=== PATIENT | female | born 1955 | race Caucasian/White ===

== ENCOUNTER → 2019-08-02 09:18 | Outpatient (CLI) | payer BC, SELFPAY ==
--- NOTE | 2019-08-02 09:22 | DI.US.S_ITS ---
PROCEDURE: US PELVIC COMPLETE INDICATIONS: POST MENOPAUSAL BLEEDING TECHNIQUE: Real-time scanning was performed of the pelvic organs, with image documentation. Additional endovaginal scanning was necessary due to incomplete visualization of the adnexal and endometrial structures by transabdominal scanning. COMPARISON: None. FINDINGS: Transabdominal scanning: Limited scanning through the kidneys shows no hydronephrosis. No pathologic free abdominal or pelvic fluid. Endovaginal scanning: Uterus: Uterus is normal in size at 7.3 x 2.5 x 4.5 cm. The endometrium measures 4 mm in combined thickness. Ovaries: The right ovary measures 1.7 by 1 by 1.7 cm. The left ovary measures 2.6 x 1.4 x 1 cm. The ovaries have a normal sonographic appearance. Incidental note is made of a septated cystic lesion adjacent to the uterine fundus that does not appear to be associated with either ovary, which measures 2.2 x 1.6 x 2 x 1 cm. IMPRESSION: The endometrial stripe is not thickened in this patient with a presenting history of postmenopausal bleeding. Normal appearing ovaries. Adjacent to the uterine fundus, there is a 2.2 cm septated cystic lesion that does not appear to be associated with either ovary. Please consider additional workup for this lesion, either with a CT of the abdomen and pelvis with IV and oral contrast or a dedicated gynecological protocol MRI (assuming that there is no contraindication). Dictated by: Gustavo Hawk M.D. on 08/02/2019 at 10:50 Approved by: Gustavo Hawk M.D. on 08/02/2019 at 10:52
== END ==
PROVIDERS: PCP Family Medicine; Referring Provider Nurse Practitioner; Visit Provider Nurse Practitioner
DX: N95.0 Postmenopausal bleeding (principal); N85.9 Noninflammatory disorder of uterus, unspecified; R10.2 Pelvic and perineal pain; R32 Unspecified urinary incontinence
CPT/HCPCS: 76830; 76856

== ENCOUNTER → 2019-08-15 08:14 | Outpatient (CLI) | payer BC, SELFPAY ==
[2019-08-15 09:52] LABS: Add Manual Diff / Slide Review NO; Basophils Absolute Auto 0 /uL (0-100); Basophils Percent Auto 0.6 % (0-2); Eosinophils Absolute Auto 200 /uL (0-450); Eosinophils Percent Auto 2.6 % (2-4); Hematocrit 40.6 % (36-46); Hemoglobin 14.1 g/dL (12.0-16.0); Lymphocytes Absolute Auto 2300 /uL (1100-4500); Lymphocytes Percent Auto 35.8 % (25-40); Mean Corpuscular HGB Conc 34.8 % (30-36); Mean Corpuscular Hemoglobin 31.4 PG (26-34); Mean Corpuscular Volume 90.2 fL (80-100); Monocytes Absolute Auto 500 /uL (0-900); Monocytes Percent Auto 7.7 % (3-14); Neutrophils Absolute Auto 3500 /uL (1500-7000); Neutrophils Percent Auto 53.3 % (50-75); Platelet Count 235 X10^3/uL (150-400); Red Blood Cell Count 4.51 X10^6/uL (4.0-5.2); Red Cell Distribution Width 12.8 % (11.6-14.8); White Blood Cell Count 6.5 X10^3/uL (4.5-11.0)
[2019-08-15 10:30] LABS: HEMOLYSIS < 15 (0-50); Iron 197 ug/dL (37-170)
[2019-08-15 10:36] LABS: Alanine Aminotransferase 37 IU/L (<35); Albumin 4.1 g/dL (3.5-5.0); Albumin Globulin Ratio 1.7 (1.0-2.8); Alkaline Phosphatase 72 U/L (38-126); Aspartate Aminotransferase 28 IU/L (14-36); BUN Creatinine Ratio 31.8 (6-22); Bilirubin Total 0.6 mg/dL (0.2-1.3); Blood Urea Nitrogen 21 mg/dL (7-17); Calcium 9.7 mg/dL (8.4-10.2); Carbon Dioxide 24 mmol/L (22-32); Chloride 106 mmol/L (98-107); Estimated Glomerular Filt Rate > 60.0 mL/min (>60); Globulin 2.4 g/dL (1.7-4.1); Glucose 97 mg/dL (80-110); HEMOLYSIS < 15 (0-50); Potassium 4.4 mmol/L (3.4-5.1); Sodium 137 mmol/L (137-145); Total Protein 6.5 g/dL (6.3-8.2)
[2019-08-15 10:43] LABS: Percent Iron Saturation 84 % (15-50); Total Iron Binding Capacity 235 ug/dL (265-497); Transferrin 170 mg/dL (206-381)
[2019-08-15 10:48] LABS: Free T3, Triiodothyronine Free 4.72 pg/mL (2.77-5.27); Free T4, Direct Thyroxine 1.23 ng/dL (0.78-2.19)
[2019-08-15 11:02] LABS: Thyroid Stimulating Hormone 2.16 uIU/mL (0.47-4.68)
== END ==
PROVIDERS: PCP Family Medicine; Referring Provider Family Medicine; Visit Provider Family Medicine
DX: Z98.890 Other specified postprocedural states (principal); Z83.49 Family history of other endocrine, nutritional and metabolic diseases
CPT/HCPCS: 36415; 80053; 83540; 83550; 84439; 84443; 84481; 85025

== ENCOUNTER → 2019-09-07 11:17 | Outpatient (CLI) | payer BC, SELFPAY | PROVIDERS: PCP Family Medicine; Referring Provider Obstetrics & Gynecology; Visit Provider Obstetrics & Gynecology | DX: R19.00 Intra-abdominal and pelvic swelling, mass and lump, unspecified site (principal); Z53.20 Procedure and treatment not carried out because of patient's decision for unspecified reasons ==

== ENCOUNTER → 2019-09-21 10:18 | Outpatient (CLI) | payer BC, SELFPAY ==
[2019-09-21 12:54] LABS: Cancer Antigen 125 < 5.5 U/mL (0-35)
== END ==
PROVIDERS: PCP Family Medicine; Referring Provider Obstetrics & Gynecology; Visit Provider Obstetrics & Gynecology
DX: R19.00 Intra-abdominal and pelvic swelling, mass and lump, unspecified site (principal)
CPT/HCPCS: 36415; 86304

== ENCOUNTER 2019-11-18 09:45 | Outpatient (RCR) | payer BC, SELFPAY ==
--- NOTE | 2019-09-23 17:00 | PT.OIE ---
Current Diagnoses Stiffness of unspecified hip, not elsewhere classified (09/23/19) Muscle weakness (generalized) (09/23/19) Postmenopausal bleeding (09/23/19) Abnormal posture (09/23/19) Past Medical History (Last Updated 08/30/19 @ 17:18 by Jc Rodriguez DO) Abdominal distension (Acute) Cardiac arrhythmia (Chronic ~1994) Carpal tunnel syndrome (Chronic ~2017) Cervical motion tenderness (Acute) Chicken pox (Resolved ~1964) Chronic pain of right thumb (Acute) Chronic thumb pain, bilateral (Acute) Dermatitis (Acute) Family history of hemochromatosis (Acute) Frequent UTI (Inactive ~1989) Incontinence (Acute) Intermittent palpitations (Acute) Kidney stones (Inactive ~1985) Lumbar region somatic dysfunction (Acute) Measles (Resolved ~1964) Mumps (Resolved ~1964) Pelvic somatic dysfunction (Acute) Post-menopausal bleeding (Acute) Sacral region somatic dysfunction (Acute) Segmental and somatic dysfunction of rib cage (Acute) Thyroid nodule (Chronic ~2018) Upper extremity somatic dysfunction (Acute) Wears glasses (Chronic) Past Surgical History (Last Updated 08/17/19 @ 18:14 by Vivian Stephens) Anesthesia (Resolved) History of section (Resolved) History of partial thyroidectomy (Resolved ~03/18/18) Visit Care Team Role Provider Type Jc Rodriguez DO Primary Care Provider Physician Specialty: Family Practice Address: [address] [place] [address], [id number] Email: POORNIMA Perez Attending Provider Advanced Logistics Analyst Referring Provider Specialty: [facility] Practice Address: [address] [place] [address], [id number] Email: [email or web address] Physical Therapy Initial Evaluation PT-OP-A Visit Information Start: 09/22/19 23:16 Freq: Status: Active Protocol: Document 09/23/19 09:04 LRN (Rec: 09/23/19 09:11 LRN [id number]) Out-Patient Physical Therapy Visit Information Visit Information Visit Type Initial Evaluation Visit Start Time 09:04 Visit Stop Time 09:59 Total Visit Minutes 55 Visit Number 1 Evaluation Information Evaluation Date 09/23/19 Precautions Precautions LATEX ALLERGY Unknown spot bleeding, possibly of pelvic region. Lesion adjacent to uterus inferior to fundus. PT-OP-B Current Condition Start: 09/22/19 23:16 Freq: Status: Active Protocol: Document 09/23/19 09:04 LRN (Rec: 09/23/19 09:59 LRN [id number]) Current Condition History of Current Condition Onset Date 5 yrs ago Current Complaints Urinary leakage intermittently , spotted bleeding of unknown origin. History of Current Condition Prior health history: Internal checks with speculum by Dr. Bhat was done and she was told vagina tissues were thinning. Chooses not to use estrogen cream due to fear cancer risk. She reports pain with intercourse, but no connection with spotting. She has had spotted bleeding when lifting her granddaughter (17 month old) up/down when lifting. She has undergone tests (see below) for the bleeding, but cause for bleeding is still unknown. Her urinary leakage is with running, fast walking, lifting of her granddaughter, but not with coughing or sneeezing. She does indicate she modifies her posture (cross legs) that may be why she is not leaking with those activities. She states her problem has been worse and got better, but now worse again. Prior Treatments and Tests Pelvic exams. Ultrasound, ruled out ovarian cancer. Endometrial biopsy was neg, and CA 125 was negative. Dx via ultrasound 08/02/19: Septated cystic lesion adjacent to the uterine fundus that doesn't appear to be associated with either ovary. Pt reports it has gotten smaller. Future Testing and Treatments Planned In 2 months (Nov) a 2nd ultrasound is planned. Treatment Goals Patient/Caregiver Goals Pt goal is to learn good exercises to build strength into muscles, and to run without leaking, to be able to walk faster on downhill walks without leaking, and to be able to play with her granddaughter without leaking. Prior Functional Status Baseline Function- ADL's Independent Baseline Function- Mobility Independent Baseline Function- Gait 5 yrs ago didn't leak with fast walking downhill. Baseline Function- Recreation/Hobbies 5 yrs ago didn't leak with running, lifting or backpacking. Current Functional Impairments (Reported) Functional Limitations- ADL's Urinary leaking with fast walking downhill, and with walking with a heavy backpack or granddaughter in a back pack. Urinary leakage with picking up and playing with 17 month old granddaughter, mainly towards end of day. Functional Limitations- Recreation/ Back packing causes urinary Hobbies leakage. Personal Factors Other Personal Factors That May Effect Unknown spot bleeding of Therapy/Recovery pelvic region. Cares and plays with her 17 month old granddaugher. PT-OP-C Subjective Start: 09/22/19 23:16 Freq: Status: Active Protocol: Document 09/23/19 09:04 LRN (Rec: 09/23/19 09:11 LRN [id number]) OP-PT Subjective Patient Comments Patient Comments PT for urinary incontinence, denies fecal incontinence. Patient Questionnaires Pelvic Pain and Urgency/Frequency Patient Symptom Scale Pelvic Pain Score 4 PT-OP-I Pelvic Floor Start: 09/22/19 23:16 Freq: Status: Active Protocol: Document 09/23/19 09:04 LRN (Rec: 09/23/19 19:57 LRN [id number]) Pelvic Floor Assessment Urine Pelvic Floor Surgery No Leakage Size Small Leakage Cause Cough,Lifting,Sneeze Leaks Per Day 4-5/month Voiding Frequency 4-5 times/day Nocturia 1 Pads Used In 24 Hours Occasional Poise pad (2) Pelvic Clock Pelvic Clock 12-3 Tenderness Pelvic Clock 3-6 Tenderness Pelvic Clock 6-9 Tenderness Pelvic Clock 9-12 Tenderness Pelvic Clock Other Tenderness of lateral lam of vaginal opening. Prolapse Cystocele Grade 1 Urethrocele Grade 1 Perineal Descent Resting Absent Bearing Absent Contraction Ability Voluntary Contraction Moderate Manual Muscle Testing Left 2 Manual Muscle Testing Right 3 Manual Muscle Testing Anterior 3 Manual Muscle Testing Posterior 3 Muscle Endurance (Seconds) 5 Number of Quick Contractions In 10 5 Seconds Comments Pelvic Floor Comments Relaxation: Present but slow to respond. Endurance: After 5 secs strength was decreased but contraction present. Quick Contractions: After 5 & 8 reps strength of contraction was less but contractions present. Visual Assessment during PF contraction: Mild Clitoral Nod, Notable Anal Scio, use of Abdominal muscles and mildly the Gluteal muscles to assist with contraction. PT-OP-J Posture/Palpation/Skin Start: 09/22/19 23:16 Freq: Status: Active Protocol: Document 09/23/19 09:04 LRN (Rec: 09/23/19 19:57 LRN [id number]) Posture Evaluation Position Standing Evaluation View All positions Head/C-Spine Posture C-Spine Flattened T-Spine Posture Increased Kyphosis L-Spine Posture Increased Lordosis Pelvis Posture Anteriorly Tilted,(R) Iliac Crest Superior Palpation Assessment Location Leg lengths Palpation Location Medial Malleolus Palpation Details Long in supine and long in longsit. PT-OP-K Range of Motion Start: 09/22/19 23:16 Freq: Status: Active Protocol: Document 09/23/19 09:04 LRN (Rec: 09/23/19 19:57 LRN [id number]) Lumbar Spine Range of Motion Lumbar Spine Active Degrees Testing Position Standing Flexion 70 Extension 18 Comments Trunk flex is with 48 deg's hip flexion, Trunk ext is with 12 deg's hip ext. PT-OP-M Strength Start: 09/22/19 23:16 Freq: Status: Active Protocol: Document 09/23/19 09:04 LRN (Rec: 09/23/19 19:57 LRN [id number]) Hip Strength Hip Manual Muscle Testing Right Reason Not Measured WFL Comments Strength is 5/5 Left Extension (S1) 3+ Fair+ External Rotation 4+ Good+ Comments Strength is 5/5 except as indicated above. PT-OP-Q Treatments Start: 09/22/19 23:16 Freq: Status: Active Protocol: Document 09/23/19 09:04 LRN (Rec: 09/23/19 09:11 LRN [id number]) Self-Care/Home Management Treatment Education Patient Education Home Exercise Program Other Education Discussed results of evaluation, discussed assessment at vaginal entry and possible reasons for pain, discussed specifics of plan of care, and goals. Discussed and educated pt in specifics for completion of bladder diary for next 7 days. Activities Self-Care/Home Management Activities Issued & reviewed HEP: Kegel exercises of Quick Flicks, Long Holds, and Aggravators. PT-OP-T Assessment and Plan Start: 09/22/19 23:16 Freq: Status: Active Protocol: Document 09/23/19 09:04 LRN (Rec: 09/23/19 09:11 LRN [id number]) Physical Therapy Assessment Rehab Potential Rehabilitation Potential Good Evaluation Complexity Number of Personal Factors/Comorbidities 1-2 Impairments Impairments Activity Tolerance,Functional Mobility,Pain,Posture,ROM, Strength Other Impairments Red and sore tissues at the opening of the vagina on the lateral lam. Goals Five Impairment Tenderness of lateral lam of the vaginal opening. Short Term Goal (STG) Pt will be educated in proper PF care with referral to physician for recommendation of care. STG Duration 09/30/19 Four Impairment Sacroiliac instability with anteriorly rotated RLE/ posteriorly rotated LLE. Short Term Goal (STG) Correct Sacroiliac dysfunction (sacrum flexed, anteriorl rotated R innoiminate or R long leg) STG Duration 10/06/13 Penitentiary Goal (LTG) Pt will be able to self correction for her particular sacroiliac dysfunction to improve pelvic stability and improve her level of continence. LTG Duration 12/22/19 Three Impairment Substitution of abdominal and gluteal ms to perform a PF contraction Short Term Goal (STG) Decrease use of associated abdominal/gluteal muscles when antione the PF. STG Duration 10/14/19 Penitentiary Goal (LTG) Pt will be able to perform a PF contraction in the absence of abdominal/gluteal muscles. LTG Duration 11/20/19 Two Impairment Urinary incontinence with lifting granddaughter and fast walking declines. Short Term Goal (STG) Improve PF strength per Long Hold to 8 sec's prior to fatigue and Quick Flicks to 8 reps prior to fatigue (Initial : Long Hold 5 secs, Quick Flick 5 prior to fatigue). STG Duration 10/21/19 Candy Butcher Goal (LTG) Pt will be able to maintain continence while lifting her granddaughter and fast walking declines. LTG Duration 12/22/19 One Impairment Pt lacks an independent self care HEP. Candy Butcher Goal (LTG) Pt will be independent in a self care HEP for PF strengthening. LTG Duration 12/22/19 Assessment Summary Assessment Pt presents with symptoms of stress urinary incontinence. She also presents with soft tissue irritation at the vaginal entry with red angry tissues on the lateral sides. There is still mild redness at the pelvic floor (PF) and inner thighs from a diagnosed fungal infection. Her PF external tissue appear health. She indicates her leakage is 4-5 times/monthwith wetting of underwear and use of Poise pads (2). Her leakage occurs with vigorous activity (taking care of her 17 month old granddaughter) and descending inclines during fast walking. She indicates normal voiding 4-5 times/day but also indicates drinking only 3 glasses of fluid and 2 caffeinated glasses per day. She is voiding a normal amount at night. The pt will benefit from skilled physical therapy for education in proper PF care and home exercises, therapeutic ex to improve PF, hip and core strength, to improve hip mobility and improve pelvic positioning, and eliminate her urinary incontinence. Physical Therapy Plan Frequency and Duration Frequency of Treatment 1x/Week Plan of Care Start Date 09/23/19 Plan of Care End Date 12/22/19 Therapeutic Interventions Therapeutic Interventions Home Exercise Program,Manual Therapy,Patient/Caregiver Education,Self-Care/Home Management,Soft Tissue Mobilization,Therapeutic Exercises Modalities Biofeedback Next Visit Focus/Plan Next Note Type Treatment Note Next Visit Plan Contact Dr. Villalta regarding pt's vaginal health and fungal infection. Review and discuss bladder diary and kegel ex. Discuss Julva cream for pt to discuss with Dr. Villalta. Assess hip mobility and start ROM exercises as appropriate. Train pt in proper deep breathing and educate pt in incorporating proper deep breathing with PF contraction with functional/ daily activities (transfers, lifting). Discuss incline walking. Try stretch to PF ( Happy Baby Pose), Hip strengthening: L hip ER, and Ext. Core strengthening, STM for TrP, tender points, short muscles, and progress Roll in/ out PF exercises and core strengthening.
--- NOTE | 2019-09-30 17:34 | PT.OTN ---
Current Diagnoses Stiffness of unspecified hip, not elsewhere classified (09/30/19) Muscle weakness (generalized) (09/30/19) Postmenopausal bleeding (09/30/19) Abnormal posture (09/30/19) Physical Therapy Treatment Note PT-OP-A Visit Information Start: 09/22/19 23:16 Freq: Status: Active Protocol: Document 09/30/19 09:06 LRN (Rec: 09/30/19 09:52 LRN [id number]) Out-Patient Physical Therapy Visit Information Visit Information Visit Type Treatment Note Visit Start Time 09:06 Visit Stop Time 09:51 Total Visit Minutes 45 Visit Number 2 Evaluation Information Evaluation Date 09/23/19 Precautions Precautions LATEX ALLERGY Unknown spot bleeding, possibly of pelvic region. Lesion adjacent to uterus inferior to fundus. PT-OP-B Current Condition Start: 09/22/19 23:16 Freq: Status: Active Protocol: Document 09/23/19 09:04 LRN (Rec: 09/23/19 09:59 LRN [id number]) Current Condition History of Current Condition Onset Date 5 yrs ago Current Complaints Urinary leakage intermittently , spotted bleeding of unknown origin. History of Current Condition Prior health history: Internal checks with speculum by Dr. Bhat was done and she was told vagina tissues were thinning. Chooses not to use estrogen cream due to fear cancer risk. She reports pain with intercourse, but no connection with spotting. She has had spotted bleeding when lifting her granddaughter (17 month old) up/down when lifting. She has undergone tests (see below) for the bleeding, but cause for bleeding is still unknown. Her urinary leakage is with running, fast walking, lifting of her granddaughter, but not with coughing or sneeezing. She does indicate she modifies her posture (cross legs) that may be why she is not leaking with those activities. She states her problem has been worse and got better, but now worse again. Prior Treatments and Tests Pelvic exams. Ultrasound, ruled out ovarian cancer. Endometrial biopsy was neg, and CA 125 was negative. Dx via ultrasound 08/02/19: Septated cystic lesion adjacent to the uterine fundus that doesn't appear to be associated with either ovary. Pt reports it has gotten smaller. Future Testing and Treatments Planned In 2 months (Nov) a 2nd ultrasound is planned. Treatment Goals Patient/Caregiver Goals Pt goal is to learn good exercises to build strength into muscles, and to run without leaking, to be able to walk faster on downhill walks without leaking, and to be able to play with her granddaughter without leaking. Prior Functional Status Baseline Function- ADL's Independent Baseline Function- Mobility Independent Baseline Function- Gait 5 yrs ago didn't leak with fast walking downhill. Baseline Function- Recreation/Hobbies 5 yrs ago didn't leak with running, lifting or backpacking. Current Functional Impairments (Reported) Functional Limitations- ADL's Urinary leaking with fast walking downhill, and with walking with a heavy backpack or granddaughter in a back pack. Urinary leakage with picking up and playing with 17 month old granddaughter, mainly towards end of day. Functional Limitations- Recreation/ Back packing causes urinary Hobbies leakage. Personal Factors Other Personal Factors That May Effect Unknown spot bleeding of Therapy/Recovery pelvic region. Cares and plays with her 17 month old granddaugher. PT-OP-C Subjective Start: 09/22/19 23:16 Freq: Status: Active Protocol: Document 09/30/19 09:06 LRN (Rec: 09/30/19 09:52 LRN [id number]) OP-PT Subjective Patient Comments Patient Comments States she has been doing the leakage and the things she usually does that causes leakage (walkking down to beach, walking back to house once she felt an urge) doesn't . Leaked a little with lifting kayak. Hasn't seen her granddaughter, but it would be similar to lifting granddaughter. States no blood spotting, but she hasn't been around her granddaughter . States a day ago she woke from sleep feeling stinging in vaginal canal. The fungal infection in the thigh is almost gone with use of cream. PT-OP-I Pelvic Floor Start: 09/22/19 23:16 Freq: Status: Active Protocol: Document 09/23/19 09:04 LRN (Rec: 09/23/19 19:57 LRN [id number]) Pelvic Floor Assessment Urine Pelvic Floor Surgery No Leakage Size Small Leakage Cause Cough,Lifting,Sneeze Leaks Per Day 4-5/month Voiding Frequency 4-5 times/day Nocturia 1 Pads Used In 24 Hours Occasional Poise pad (2) Pelvic Clock Pelvic Clock 12-3 Tenderness Pelvic Clock 3-6 Tenderness Pelvic Clock 6-9 Tenderness Pelvic Clock 9-12 Tenderness Pelvic Clock Other Tenderness of lateral lam of vaginal opening. Prolapse Cystocele Grade 1 Urethrocele Grade 1 Perineal Descent Resting Absent Bearing Absent Contraction Ability Voluntary Contraction Moderate Manual Muscle Testing Left 2 Manual Muscle Testing Right 3 Manual Muscle Testing Anterior 3 Manual Muscle Testing Posterior 3 Muscle Endurance (Seconds) 5 Number of Quick Contractions In 10 5 Seconds Comments Pelvic Floor Comments Relaxation: Present but slow to respond. Endurance: After 5 secs strength was decreased but contraction present. Quick Contractions: After 5 & 8 reps strength of contraction was less but contractions present. Visual Assessment during PF contraction: Mild Clitoral Nod, Notable Anal Lowry, use of Abdominal muscles and mildly the Gluteal muscles to assist with contraction. PT-OP-J Posture/Palpation/Skin Start: 09/22/19 23:16 Freq: Status: Active Protocol: Document 09/23/19 09:04 LRN (Rec: 09/23/19 19:57 LRN [id number]) Posture Evaluation Position Standing Evaluation View All positions Head/C-Spine Posture C-Spine Flattened T-Spine Posture Increased Kyphosis L-Spine Posture Increased Lordosis Pelvis Posture Anteriorly Tilted,(R) Iliac Crest Superior Palpation Assessment Location Leg lengths Palpation Location Medial Malleolus Palpation Details Long in supine and long in longsit. PT-OP-K Range of Motion Start: 09/22/19 23:16 Freq: Status: Active Protocol: Document 09/23/19 09:04 LRN (Rec: 09/23/19 19:57 LRN [id number]) Lumbar Spine Range of Motion Lumbar Spine Active Degrees Testing Position Standing Flexion 70 Extension 18 Comments Trunk flex is with 48 deg's hip flexion, Trunk ext is with 12 deg's hip ext. PT-OP-M Strength Start: 09/22/19 23:16 Freq: Status: Active Protocol: Document 09/23/19 09:04 LRN (Rec: 09/23/19 19:57 LRN [id number]) Hip Strength Hip Manual Muscle Testing Right Reason Not Measured WFL Comments Strength is 5/5 Left Extension (S1) 3+ Fair+ External Rotation 4+ Good+ Comments Strength is 5/5 except as indicated above. PT-OP-Q Treatments Start: 09/22/19 23:16 Freq: Status: Active Protocol: Document 09/30/19 09:06 LRN (Rec: 09/30/19 09:52 LRN [id number]) Therapeutic Exercises Supine Exercises Piriformis stretch Supine Exercise Name Piriformis stretch (pulling knee to opposite shoulder) Side bilateral Reps/Minutes 5' Comments Physical & v. cuing to find optimum stretch Lateral hip stretch Supine Exercise Name Lateral hip stretch Side bilateral Reps/Minutes 4' Comments Physical & v. cuing to find optimum stretch Fig 4 stretch Supine Exercise Name Fig 4 stretch Side bilateral Reps/Minutes 4' Comments Physical & v. cuing to find optimum stretch Self-Care/Home Management Treatment Education Patient Education Body Mechanics,Home Exercise Program Other Education Discussed pt's varying symptoms and educated pt in proper breathing technique with proper bending/lifting body mechanics. Reviewed bladder diary at length (20') with discussion of average voiding frequency and educated /discussed proper fluid intake for hydrationi and to help with voiding frequency. Issued bladder irritant handout with discussed at length (11') of various foods and drinks that could irritate bladder lining Activities Self-Care/Home Management Activities Issued & reviewed HEP: Hip ER /IR stretches. Recommended to pt that she contact Dr Villalta, OBGYN, for recommendations on vaginal soft tissue care. Discussed because she has not noted spot bleeding this past week ( although she has not had to take care of her granddaughter ), but her tissues still feel irritated, she might consider a discussion of tissue health with her OBGYN. PT-OP-T Assessment and Plan Start: 09/22/19 23:16 Freq: Status: Active Protocol: Document 09/30/19 09:06 LRN (Rec: 09/30/19 09:52 LRN [id number]) Physical Therapy Assessment Goals Five Impairment Tenderness of lateral lam of the vaginal opening. Short Term Goal (STG) Pt will be educated in proper PF care with referral to physician for recommendation of care. STG Duration 09/30/19 Four Impairment Sacroiliac instability with anteriorly rotated RLE/ posteriorly rotated LLE. Short Term Goal (STG) Correct Sacroiliac dysfunction (sacrum flexed, anteriorl rotated R innoiminate or R long leg) STG Duration 10/06/13 Nursing Home Goal (LTG) Pt will be able to self correction for her particular sacroiliac dysfunction to improve pelvic stability and improve her level of continence. LTG Duration 12/22/19 Three Impairment Substitution of abdominal and gluteal ms to perform a PF contraction Short Term Goal (STG) Decrease use of associated abdominal/gluteal muscles when antione the PF. STG Duration 10/14/19 Nursing Home Goal (LTG) Pt will be able to perform a PF contraction in the absence of abdominal/gluteal muscles. LTG Duration 11/20/19 Two Impairment Urinary incontinence with lifting granddaughter and fast walking declines. Short Term Goal (STG) Improve PF strength per Long Hold to 8 sec's prior to fatigue and Quick Flicks to 8 reps prior to fatigue (Initial : Long Hold 5 secs, Quick Flick 5 prior to fatigue). STG Duration 10/21/19 Nursing Home Goal (LTG) Pt will be able to maintain continence while lifting her granddaughter and fast walking declines. LTG Duration 12/22/19 One Impairment Pt lacks an independent self care HEP. Nursing Home Goal (LTG) Pt will be independent in a self care HEP for PF strengthening. LTG Duration 12/22/19 Assessment Summary Assessment Pt has noted improvement in her level of continence with less leakage doing Kegel exercises. Bladder Diary review results in finding pt to be very restricted in her fluid intake, taking in 1/2 or less than recommended values. Pt should discuss with Dr. Villalta her vaginal health with a possible cream since her fungal infection appears to be clearing. Physical Therapy Plan Frequency and Duration Frequency of Treatment 1x/Week Plan of Care Start Date 09/23/19 Plan of Care End Date 12/22/19 Next Visit Focus/Plan Next Note Type Treatment Note Next Visit Plan Contact Dr. Villalta regarding pt's vaginal health and fungal infection. Discuss Julva cream for pt to discuss with Dr. Villalta. Review proper deep breathing and incorporating proper deep breathing with PF contraction with functional/daily activities (transfers, lifting ). Discuss incline walking. Try stretch to PF (Happy Baby Pose), Hip strengthening: L hip ER, and Ext. Core strengthening, STM for TrP, tender points, short muscles, and progress Roll in/out PF exercises and core strengthening.
--- NOTE | 2019-10-07 14:52 | PT.OTN ---
Current Diagnoses Stiffness of unspecified hip, not elsewhere classified (10/07/19) Muscle weakness (generalized) (10/07/19) Postmenopausal bleeding (10/07/19) Abnormal posture (10/07/19) Physical Therapy Treatment Note PT-OP-A Visit Information Start: 09/22/19 23:16 Freq: Status: Active Protocol: Document 10/07/19 09:03 LRN (Rec: 10/07/19 09:52 LRN [id number]) Out-Patient Physical Therapy Visit Information Visit Information Visit Type Treatment Note Visit Start Time 09:03 Visit Stop Time 09:45 Total Visit Minutes 42 Visit Number 3 Evaluation Information Evaluation Date 09/23/19 Precautions Precautions LATEX ALLERGY Unknown spot bleeding, possibly of pelvic region. Lesion adjacent to uterus inferior to fundus. PT-OP-B Current Condition Start: 09/22/19 23:16 Freq: Status: Active Protocol: Document 09/23/19 09:04 LRN (Rec: 09/23/19 09:59 LRN [id number]) Current Condition History of Current Condition Onset Date 5 yrs ago Current Complaints Urinary leakage intermittently , spotted bleeding of unknown origin. History of Current Condition Prior health history: Internal checks with speculum by Dr. Bhat was done and she was told vagina tissues were thinning. Chooses not to use estrogen cream due to fear cancer risk. She reports pain with intercourse, but no connection with spotting. She has had spotted bleeding when lifting her granddaughter (17 month old) up/down when lifting. She has undergone tests (see below) for the bleeding, but cause for bleeding is still unknown. Her urinary leakage is with running, fast walking, lifting of her granddaughter, but not with coughing or sneeezing. She does indicate she modifies her posture (cross legs) that may be why she is not leaking with those activities. She states her problem has been worse and got better, but now worse again. Prior Treatments and Tests Pelvic exams. Ultrasound, ruled out ovarian cancer. Endometrial biopsy was neg, and CA 125 was negative. Dx via ultrasound 08/02/19: Septated cystic lesion adjacent to the uterine fundus that doesn't appear to be associated with either ovary. Pt reports it has gotten smaller. Future Testing and Treatments Planned In 2 months (Nov) a 2nd ultrasound is planned. Treatment Goals Patient/Caregiver Goals Pt goal is to learn good exercises to build strength into muscles, and to run without leaking, to be able to walk faster on downhill walks without leaking, and to be able to play with her granddaughter without leaking. Prior Functional Status Baseline Function- ADL's Independent Baseline Function- Mobility Independent Baseline Function- Gait 5 yrs ago didn't leak with fast walking downhill. Baseline Function- Recreation/Hobbies 5 yrs ago didn't leak with running, lifting or backpacking. Current Functional Impairments (Reported) Functional Limitations- ADL's Urinary leaking with fast walking downhill, and with walking with a heavy backpack or granddaughter in a back pack. Urinary leakage with picking up and playing with 17 month old granddaughter, mainly towards end of day. Functional Limitations- Recreation/ Back packing causes urinary Hobbies leakage. Personal Factors Other Personal Factors That May Effect Unknown spot bleeding of Therapy/Recovery pelvic region. Cares and plays with her 17 month old granddaugher. PT-OP-C Subjective Start: 09/22/19 23:16 Freq: Status: Active Protocol: Document 10/07/19 09:03 LRN (Rec: 10/07/19 09:52 LRN [id number]) OP-PT Subjective Patient Comments Patient Comments Pt states she did ex's only a couple times due to company visiting this week. Didn't do bladder diary. States she is hurting no inside the vagina and has not had sexual intercourse. No spotting, odor or discharge. States she has seen her granddaughter and did not have spotting, did have urinary leakage. PT-OP-I Pelvic Floor Start: 09/22/19 23:16 Freq: Status: Active Protocol: Document 09/23/19 09:04 LRN (Rec: 09/23/19 19:57 LRN [id number]) Pelvic Floor Assessment Urine Pelvic Floor Surgery No Leakage Size Small Leakage Cause Cough,Lifting,Sneeze Leaks Per Day 4-5/month Voiding Frequency 4-5 times/day Nocturia 1 Pads Used In 24 Hours Occasional Poise pad (2) Pelvic Clock Pelvic Clock 12-3 Tenderness Pelvic Clock 3-6 Tenderness Pelvic Clock 6-9 Tenderness Pelvic Clock 9-12 Tenderness Pelvic Clock Other Tenderness of lateral lam of vaginal opening. Prolapse Cystocele Grade 1 Urethrocele Grade 1 Perineal Descent Resting Absent Bearing Absent Contraction Ability Voluntary Contraction Moderate Manual Muscle Testing Left 2 Manual Muscle Testing Right 3 Manual Muscle Testing Anterior 3 Manual Muscle Testing Posterior 3 Muscle Endurance (Seconds) 5 Number of Quick Contractions In 10 5 Seconds Comments Pelvic Floor Comments Relaxation: Present but slow to respond. Endurance: After 5 secs strength was decreased but contraction present. Quick Contractions: After 5 & 8 reps strength of contraction was less but contractions present. Visual Assessment during PF contraction: Mild Clitoral Nod, Notable Anal Wheelwright, use of Abdominal muscles and mildly the Gluteal muscles to assist with contraction. PT-OP-J Posture/Palpation/Skin Start: 09/22/19 23:16 Freq: Status: Active Protocol: Document 09/23/19 09:04 LRN (Rec: 09/23/19 19:57 LRN [id number]) Posture Evaluation Position Standing Evaluation View All positions Head/C-Spine Posture C-Spine Flattened T-Spine Posture Increased Kyphosis L-Spine Posture Increased Lordosis Pelvis Posture Anteriorly Tilted,(R) Iliac Crest Superior Palpation Assessment Location Leg lengths Palpation Location Medial Malleolus Palpation Details Long in supine and long in longsit. PT-OP-K Range of Motion Start: 09/22/19 23:16 Freq: Status: Active Protocol: Document 09/23/19 09:04 LRN (Rec: 09/23/19 19:57 LRN [id number]) Lumbar Spine Range of Motion Lumbar Spine Active Degrees Testing Position Standing Flexion 70 Extension 18 Comments Trunk flex is with 48 deg's hip flexion, Trunk ext is with 12 deg's hip ext. PT-OP-M Strength Start: 09/22/19 23:16 Freq: Status: Active Protocol: Document 09/23/19 09:04 LRN (Rec: 09/23/19 19:57 LRN [id number]) Hip Strength Hip Manual Muscle Testing Right Reason Not Measured WFL Comments Strength is 5/5 Left Extension (S1) 3+ Fair+ External Rotation 4+ Good+ Comments Strength is 5/5 except as indicated above. PT-OP-Q Treatments Start: 09/22/19 23:16 Freq: Status: Active Protocol: Document 10/07/19 09:03 LRN (Rec: 10/07/19 09:52 LRN [id number]) Therapeutic Exercises Supine Exercises Happy Baby Pose Supine Exercise Name Happy Baby Pose Reps/Minutes 2' Comments Phys and v. cuing for proper positioning. Piriformis stretch Supine Exercise Name Piriformis stretch (pulling knee to opposite shoulder) Side bilateral Reps/Minutes 4' Comments Physical & v. cuing to find optimum stretch Lateral hip stretch Supine Exercise Name Lateral hip stretch Side bilateral Reps/Minutes 4' Comments Physical & v. cuing to find optimum stretch Fig 4 stretch Supine Exercise Name Fig 4 stretch f/b active stretch Side bilateral Reps/Minutes 4' Comments Physical & v. cuing for active stretch Prone Exercises Hip Ext Prone Exercise Name Hip Ext Sidelying Exercises Clamshell Sidelying Exercise Name Clamshell w/TA& breathing Side bilateral Reps/Minutes 15x each Comments Phys & v. cuing to maintain core stability and isolate hips Self-Care/Home Management Treatment Education Patient Education Home Exercise Program Activities Self-Care/Home Management Activities Issued & reviewed HEP: Merly and written/reviewed instructions for Hip ext and Happy Baby Pose. Recommended pt contact Dr. Holloway to discuss vaginal pain and ask for recommendations regarding naturopathic doctor in [place]. PT-OP-T Assessment and Plan Start: 09/22/19 23:16 Freq: Status: Active Protocol: Document 10/07/19 09:03 LRN (Rec: 10/07/19 09:52 LRN [id number]) Physical Therapy Assessment Goals Five Impairment Tenderness of lateral lam of the vaginal opening. Short Term Goal (STG) Pt will be educated in proper PF care with referral to physician for recommendation of care. STG Duration 09/30/19 Four Impairment Sacroiliac instability with anteriorly rotated RLE/ posteriorly rotated LLE. Short Term Goal (STG) Correct Sacroiliac dysfunction (sacrum flexed, anteriorl rotated R innoiminate or R long leg) STG Duration 10/06/13 Conveyor System Operator Goal (LTG) Pt will be able to self correction for her particular sacroiliac dysfunction to improve pelvic stability and improve her level of continence. LTG Duration 12/22/19 Three Impairment Substitution of abdominal and gluteal ms to perform a PF contraction Short Term Goal (STG) Decrease use of associated abdominal/gluteal muscles when antione the PF. STG Duration 10/14/19 Conveyor System Operator Goal (LTG) Pt will be able to perform a PF contraction in the absence of abdominal/gluteal muscles. LTG Duration 11/20/19 Two Impairment Urinary incontinence with lifting granddaughter and fast walking declines. Short Term Goal (STG) Improve PF strength per Long Hold to 8 sec's prior to fatigue and Quick Flicks to 8 reps prior to fatigue (Initial : Long Hold 5 secs, Quick Flick 5 prior to fatigue). STG Duration 10/21/19 Usp Goal (LTG) Pt will be able to maintain continence while lifting her granddaughter and fast walking declines. LTG Duration 12/22/19 One Impairment Pt lacks an independent self care HEP. Usp Goal (LTG) Pt will be independent in a self care HEP for PF strengthening. LTG Duration 12/22/19 (10/07/19: Progresssing with hip strengthening) Progress Towards Goals Progress Comments No reported spot bleeding with lifting of granddaughter, only urinary leakage. Initiated hip strengthening to HEP. Assessment Summary Assessment Pt has weakness of hip extensor and has some difficulty maintaining core stability with hip ext in prone. Pt needed review of hip stretches but appears to have a better understanding of hip stretches. Physical Therapy Plan Frequency and Duration Frequency of Treatment 1x/Week Plan of Care Start Date 09/23/19 Plan of Care End Date 12/22/19 Next Visit Focus/Plan Next Note Type Treatment Note Next Visit Plan Review HEP (clamshell, Happy Baby pose & prone hip ext). Discuss proper PF care. Teach isolated PF contractions. Check Sacral positioning. Pt to contact Dr. Villalta regarding vaginal health and fungal infection not improving with cream. Discuss Julva cream for pt to discuss with Dr. Villalta. Review proper deep breathing and incorporating proper deep breathing with PF contraction with functional/daily activities (transfers, lifting ). Discuss incline walking. Core strengthening, STM for TrP, tender points, short muscles, and progress Roll in/ out PF exercises and core strengthening.
--- NOTE | 2019-10-14 16:55 | PT.OTN ---
Current Diagnoses Stiffness of unspecified hip, not elsewhere classified (10/14/19) Muscle weakness (generalized) (10/14/19) Postmenopausal bleeding (10/14/19) Abnormal posture (10/14/19) Physical Therapy Treatment Note PT-OP-A Visit Information Start: 09/22/19 23:16 Freq: Status: Active Protocol: Document 10/14/19 09:11 LRN (Rec: 10/14/19 09:54 LRN [id number]) Out-Patient Physical Therapy Visit Information Visit Information Visit Type Treatment Note Visit Start Time 09:11 Visit Stop Time 09:54 Total Visit Minutes 43 Visit Number 4 Evaluation Information Evaluation Date 09/23/19 Precautions Precautions LATEX ALLERGY Unknown spot bleeding, possibly of pelvic region. Lesion adjacent to uterus inferior to fundus. PT-OP-B Current Condition Start: 09/22/19 23:16 Freq: Status: Active Protocol: Document 09/23/19 09:04 LRN (Rec: 09/23/19 09:59 LRN [id number]) Current Condition History of Current Condition Onset Date 5 yrs ago Current Complaints Urinary leakage intermittently , spotted bleeding of unknown origin. History of Current Condition Prior health history: Internal checks with speculum by Dr. Bhat was done and she was told vagina tissues were thinning. Chooses not to use estrogen cream due to fear cancer risk. She reports pain with intercourse, but no connection with spotting. She has had spotted bleeding when lifting her granddaughter (17 month old) up/down when lifting. She has undergone tests (see below) for the bleeding, but cause for bleeding is still unknown. Her urinary leakage is with running, fast walking, lifting of her granddaughter, but not with coughing or sneeezing. She does indicate she modifies her posture (cross legs) that may be why she is not leaking with those activities. She states her problem has been worse and got better, but now worse again. Prior Treatments and Tests Pelvic exams. Ultrasound, ruled out ovarian cancer. Endometrial biopsy was neg, and CA 125 was negative. Dx via ultrasound 08/02/19: Septated cystic lesion adjacent to the uterine fundus that doesn't appear to be associated with either ovary. Pt reports it has gotten smaller. Future Testing and Treatments Planned In 2 months (Nov) a 2nd ultrasound is planned. Treatment Goals Patient/Caregiver Goals Pt goal is to learn good exercises to build strength into muscles, and to run without leaking, to be able to walk faster on downhill walks without leaking, and to be able to play with her granddaughter without leaking. Prior Functional Status Baseline Function- ADL's Independent Baseline Function- Mobility Independent Baseline Function- Gait 5 yrs ago didn't leak with fast walking downhill. Baseline Function- Recreation/Hobbies 5 yrs ago didn't leak with running, lifting or backpacking. Current Functional Impairments (Reported) Functional Limitations- ADL's Urinary leaking with fast walking downhill, and with walking with a heavy backpack or granddaughter in a back pack. Urinary leakage with picking up and playing with 17 month old granddaughter, mainly towards end of day. Functional Limitations- Recreation/ Back packing causes urinary Hobbies leakage. Personal Factors Other Personal Factors That May Effect Unknown spot bleeding of Therapy/Recovery pelvic region. Cares and plays with her 17 month old granddaugher. PT-OP-C Subjective Start: 09/22/19 23:16 Freq: Status: Active Protocol: Document 10/14/19 09:11 LRN (Rec: 10/14/19 09:54 LRN [id number]) OP-PT Subjective Patient Comments Patient Comments Was seen by Dr. Hernandez after last session and was suggested replens and was found her tissues were highly basic. Was issued an estrogen ring and inserted it last night. Next follow up for the mass at uterus in Nov. Started Phlebotomy to take out the iron due to hematacrosis, 1 unit a week. Had a little spot bleeding while with granddaughter, not red, now a darker red. PT-OP-I Pelvic Floor Start: 09/22/19 23:16 Freq: Status: Active Protocol: Document 09/23/19 09:04 LRN (Rec: 09/23/19 19:57 LRN [id number]) Pelvic Floor Assessment Urine Pelvic Floor Surgery No Leakage Size Small Leakage Cause Cough,Lifting,Sneeze Leaks Per Day 4-5/month Voiding Frequency 4-5 times/day Nocturia 1 Pads Used In 24 Hours Occasional Poise pad (2) Pelvic Clock Pelvic Clock 12-3 Tenderness Pelvic Clock 3-6 Tenderness Pelvic Clock 6-9 Tenderness Pelvic Clock 9-12 Tenderness Pelvic Clock Other Tenderness of lateral lam of vaginal opening. Prolapse Cystocele Grade 1 Urethrocele Grade 1 Perineal Descent Resting Absent Bearing Absent Contraction Ability Voluntary Contraction Moderate Manual Muscle Testing Left 2 Manual Muscle Testing Right 3 Manual Muscle Testing Anterior 3 Manual Muscle Testing Posterior 3 Muscle Endurance (Seconds) 5 Number of Quick Contractions In 10 5 Seconds Comments Pelvic Floor Comments Relaxation: Present but slow to respond. Endurance: After 5 secs strength was decreased but contraction present. Quick Contractions: After 5 & 8 reps strength of contraction was less but contractions present. Visual Assessment during PF contraction: Mild Clitoral Nod, Notable Anal [place], use of Abdominal muscles and mildly the Gluteal muscles to assist with contraction. PT-OP-J Posture/Palpation/Skin Start: 09/22/19 23:16 Freq: Status: Active Protocol: Document 09/23/19 09:04 LRN (Rec: 09/23/19 19:57 LRN [id number]) Posture Evaluation Position Standing Evaluation View All positions Head/C-Spine Posture C-Spine Flattened T-Spine Posture Increased Kyphosis L-Spine Posture Increased Lordosis Pelvis Posture Anteriorly Tilted,(R) Iliac Crest Superior Palpation Assessment Location Leg lengths Palpation Location Medial Malleolus Palpation Details Long in supine and long in longsit. PT-OP-K Range of Motion Start: 09/22/19 23:16 Freq: Status: Active Protocol: Document 09/23/19 09:04 LRN (Rec: 09/23/19 19:57 LRN [id number]) Lumbar Spine Range of Motion Lumbar Spine Active Degrees Testing Position Standing Flexion 70 Extension 18 Comments Trunk flex is with 48 deg's hip flexion, Trunk ext is with 12 deg's hip ext. PT-OP-M Strength Start: 09/22/19 23:16 Freq: Status: Active Protocol: Document 09/23/19 09:04 LRN (Rec: 09/23/19 19:57 LRN [id number]) Hip Strength Hip Manual Muscle Testing Right Reason Not Measured WFL Comments Strength is 5/5 Left Extension (S1) 3+ Fair+ External Rotation 4+ Good+ Comments Strength is 5/5 except as indicated above. PT-OP-Q Treatments Start: 09/22/19 23:16 Freq: Status: Active Protocol: Document 10/14/19 09:11 LRN (Rec: 10/14/19 09:54 LRN [id number]) Therapeutic Exercises Supine Exercises Kegel in isolation Supine Exercise Name Kegel in isolation of TA, gluts, Hip AD Reps/Minutes 6' Comments Pt needed phy and v cuing to improve awareness of isolating PF Happy Baby Pose Supine Exercise Name Happy Baby Pose Reps/Minutes 2' Comments Phys and v. cuing for proper positioning. Prone Exercises Hip Ext Prone Exercise Name Hip Ext Side bilateral Reps/Minutes 10x Comments Initial need for phys & v. cuing to breath & stabilize while lifting leg Sidelying Exercises Reverse Clamshell Sidelying Exercise Name Reverse Clamshell Side bilateral Reps/Minutes 5' Comments Phys & v. cuing to for TA/ breathing and training Pf hold 5x, then 6 Quick Clamshell Sidelying Exercise Name Clamshell w/TA/breathing, adding PF Side bilateral Reps/Minutes 5' Comments Phys & v. cuing to for TA/ breathing and training Pf hold 5x, then 6 Quick Manual Therapy Treatment Soft Tissue Mobilization L low back Body Location L upper gluteals, Piriformis, and QL Mobilization Type Strumming,Sustained Pressure Intensity/Depth Moderate Body Position Prone Comments Pt slightly tight on the left side to end. Joint Mobilizations Sacrum Joint Sacrum Direction Corrected mild L rotation of sacrum Body Position Prone Comments MET to derotate sacrum Self-Care/Home Management Treatment Education Patient Education Body Mechanics,Home Exercise Program Other Education Discussed & educated pt in proper squatting and lifting, sit to stand, and moving in bed using breathwork and PF contraction for proper pistoning effect. Activities Self-Care/Home Management Activities Issued & reviewed HEP of Clamshell and reverse clamshell ex with PF contractions for long hold 10 x 1 and Quick Flicks x 6-10; written I/S for hip ext strengthening and PF contraction in isolation of substitute muscles. PT-OP-T Assessment and Plan Start: 09/22/19 23:16 Freq: Status: Active Protocol: Document 10/14/19 09:11 LRN (Rec: 10/14/19 09:54 LRN [id number]) Physical Therapy Assessment Goals Five Impairment Tenderness of lateral lam of the vaginal opening. Short Term Goal (STG) Pt will be educated in proper PF care with referral to physician for recommendation of care. (10/14/19: Pt has seen MD for recommendation of PF redness). STG Duration 09/30/19 Four Impairment Sacroiliac instability with anteriorly rotated RLE/ posteriorly rotated LLE. Short Term Goal (STG) Correct Sacroiliac dysfunction (sacrum flexed, anterior rotated R innoiminate or R long leg) STG Duration 10/06/13 Correction Goal (LTG) Pt will be able to self correction for her particular sacroiliac dysfunction to improve pelvic stability and improve her level of continence. LTG Duration 12/22/19 Three Impairment Substitution of abdominal and gluteal ms to perform a PF contraction Short Term Goal (STG) Decrease use of associated abdominal/gluteal muscles when antione the PF. STG Duration 10/14/19 (10/14/19: MET GOAL) Correction Goal (LTG) Pt will be able to perform a PF contraction in the absence of abdominal/gluteal muscles. LTG Duration 11/20/19 Two Impairment Urinary incontinence with lifting granddaughter and fast walking declines. Short Term Goal (STG) Improve PF strength per Long Hold to 8 sec's prior to fatigue and Quick Flicks to 8 reps prior to fatigue (Initial : Long Hold 5 secs, Quick Flick 5 prior to fatigue). STG Duration 10/21/19 Information Resource Consultant Goal (LTG) Pt will be able to maintain continence while lifting her granddaughter and fast walking declines. LTG Duration 12/22/19 One Impairment Pt lacks an independent self care HEP. Information Resource Consultant Goal (LTG) Pt will be independent in a self care HEP for PF strengthening. LTG Duration 12/22/19 (10/14/19: Progresssing with hip strengthening) Progress Towards Goals Progress Comments Pt has good awareness of isolating the PF contraction from substitue muscles. Pt did have reported spot bleeding when with her granddaughter, but her blood was dark like dried blood vs bright red. HEP is being progressed. Pt just starting estrogen cream and a new skin care for her inner thigh rash. Assessment Summary Assessment Pt able to perfom Kegel in isolation with much concentration. Pt is isolated from Gluteals and Hip AD. Pt with stress urinary incontinence with soft tissue irritation at the vaginal entry with red angry tissues on the lateral sides on initial evaluation. Pt may have PF tightness but will hold on stretching due to pt vaginal red/raw tissues at vaginal entry. Physical Therapy Plan Frequency and Duration Frequency of Treatment 1x/Week Plan of Care Start Date 09/23/19 Plan of Care End Date 12/22/19 Next Visit Focus/Plan Next Note Type Treatment Note Next Visit Plan Review HEP (Clamshell & reverse clamshell and isolated PF contraction). Discuss proper PF care (goal 5). Check Sacral positioning. Check on progress with obtaining Julva cream online & if discussed with Dr. Hernandez. Review proper deep breathing and incorporating proper deep breathing with PF contraction with functional/daily activities (transfers, lifting ). Discuss incline walking. Core strengthening, STM for TrP, tender points, short muscles, and progress Roll in/ out PF exercises and core strengthening. Will wait until vaginal tissues are healthier before assessing for tightness of PF. Will hold on STM of hip AD's until fungal infection cleared.
--- NOTE | 2019-10-21 19:51 | PT.OTN ---
Current Diagnoses Stiffness of unspecified hip, not elsewhere classified (10/21/19) Muscle weakness (generalized) (10/21/19) Postmenopausal bleeding (10/21/19) Abnormal posture (10/21/19) Physical Therapy Treatment Note PT-OP-A Visit Information Start: 09/22/19 23:16 Freq: Status: Active Protocol: Document 10/21/19 09:06 LRN (Rec: 10/21/19 09:50 LRN [id number]) Out-Patient Physical Therapy Visit Information Visit Information Visit Type Treatment Note Visit Start Time 09:06 Visit Stop Time 09:48 Total Visit Minutes 42 Visit Number 5 Evaluation Information Evaluation Date 09/23/19 Precautions Precautions LATEX ALLERGY Unknown spot bleeding, possibly of pelvic region. Lesion adjacent to uterus inferior to fundus. PT-OP-B Current Condition Start: 09/22/19 23:16 Freq: Status: Active Protocol: Document 09/23/19 09:04 LRN (Rec: 09/23/19 09:59 LRN [id number]) Current Condition History of Current Condition Onset Date 5 yrs ago Current Complaints Urinary leakage intermittently , spotted bleeding of unknown origin. History of Current Condition Prior health history: Internal checks with speculum by Dr. Bhat was done and she was told vagina tissues were thinning. Chooses not to use estrogen cream due to fear cancer risk. She reports pain with intercourse, but no connection with spotting. She has had spotted bleeding when lifting her granddaughter (17 month old) up/down when lifting. She has undergone tests (see below) for the bleeding, but cause for bleeding is still unknown. Her urinary leakage is with running, fast walking, lifting of her granddaughter, but not with coughing or sneeezing. She does indicate she modifies her posture (cross legs) that may be why she is not leaking with those activities. She states her problem has been worse and got better, but now worse again. Prior Treatments and Tests Pelvic exams. Ultrasound, ruled out ovarian cancer. Endometrial biopsy was neg, and CA 125 was negative. Dx via ultrasound 08/02/19: Septated cystic lesion adjacent to the uterine fundus that doesn't appear to be associated with either ovary. Pt reports it has gotten smaller. Future Testing and Treatments Planned In 2 months (Nov) a 2nd ultrasound is planned. Treatment Goals Patient/Caregiver Goals Pt goal is to learn good exercises to build strength into muscles, and to run without leaking, to be able to walk faster on downhill walks without leaking, and to be able to play with her granddaughter without leaking. Prior Functional Status Baseline Function- ADL's Independent Baseline Function- Mobility Independent Baseline Function- Gait 5 yrs ago didn't leak with fast walking downhill. Baseline Function- Recreation/Hobbies 5 yrs ago didn't leak with running, lifting or backpacking. Current Functional Impairments (Reported) Functional Limitations- ADL's Urinary leaking with fast walking downhill, and with walking with a heavy backpack or granddaughter in a back pack. Urinary leakage with picking up and playing with 17 month old granddaughter, mainly towards end of day. Functional Limitations- Recreation/ Back packing causes urinary Hobbies leakage. Personal Factors Other Personal Factors That May Effect Unknown spot bleeding of Therapy/Recovery pelvic region. Cares and plays with her 17 month old granddaugher. PT-OP-C Subjective Start: 09/22/19 23:16 Freq: Status: Active Protocol: Document 10/21/19 09:06 LRN (Rec: 10/21/19 09:50 LRN [id number]) OP-PT Subjective Patient Comments Patient Comments Has been sporadic with ex's. Feels better because she has the tools, she just need to get going. Feels she is getting more motion in her hips and her back is doing better. Saw granddaugher and did proper breathing and noted it was helpful. Pt feels she is improving in her ability to lift her granddaughter 60- 70% better, sometimes able to lift without leaking. Hasn't noticed leakage going down declines. States she doesn't think she can give the time and commitment needed to progress like she should. She feels she would like to continue with what information she has and see if she gets better. Pt agreeable to return one more time for review of her self care program given today. PT-OP-I Pelvic Floor Start: 09/22/19 23:16 Freq: Status: Active Protocol: Document 09/23/19 09:04 LRN (Rec: 09/23/19 19:57 LRN [id number]) Pelvic Floor Assessment Urine Pelvic Floor Surgery No Leakage Size Small Leakage Cause Cough,Lifting,Sneeze Leaks Per Day 4-5/month Voiding Frequency 4-5 times/day Nocturia 1 Pads Used In 24 Hours Occasional Poise pad (2) Pelvic Clock Pelvic Clock 12-3 Tenderness Pelvic Clock 3-6 Tenderness Pelvic Clock 6-9 Tenderness Pelvic Clock 9-12 Tenderness Pelvic Clock Other Tenderness of lateral lam of vaginal opening. Prolapse Cystocele Grade 1 Urethrocele Grade 1 Perineal Descent Resting Absent Bearing Absent Contraction Ability Voluntary Contraction Moderate Manual Muscle Testing Left 2 Manual Muscle Testing Right 3 Manual Muscle Testing Anterior 3 Manual Muscle Testing Posterior 3 Muscle Endurance (Seconds) 5 Number of Quick Contractions In 10 5 Seconds Comments Pelvic Floor Comments Relaxation: Present but slow to respond. Endurance: After 5 secs strength was decreased but contraction present. Quick Contractions: After 5 & 8 reps strength of contraction was less but contractions present. Visual Assessment during PF contraction: Mild Clitoral Nod, Notable Anal [place], use of Abdominal muscles and mildly the Gluteal muscles to assist with contraction. PT-OP-J Posture/Palpation/Skin Start: 09/22/19 23:16 Freq: Status: Active Protocol: Document 09/23/19 09:04 LRN (Rec: 09/23/19 19:57 LR [id number]) Posture Evaluation Position Standing Evaluation View All positions Head/C-Spine Posture C-Spine Flattened T-Spine Posture Increased Kyphosis L-Spine Posture Increased Lordosis Pelvis Posture Anteriorly Tilted,(R) Iliac Crest Superior Palpation Assessment Location Leg lengths Palpation Location Medial Malleolus Palpation Details Long in supine and long in longsit. PT-OP-K Range of Motion Start: 09/22/19 23:16 Freq: Status: Active Protocol: Document 09/23/19 09:04 LRN (Rec: 09/23/19 19:57 LRN [id number]) Lumbar Spine Range of Motion Lumbar Spine Active Degrees Testing Position Standing Flexion 70 Extension 18 Comments Trunk flex is with 48 deg's hip flexion, Trunk ext is with 12 deg's hip ext. PT-OP-M Strength Start: 09/22/19 23:16 Freq: Status: Active Protocol: Document 09/23/19 09:04 LRN (Rec: 09/23/19 19:57 LRN [id number]) Hip Strength Hip Manual Muscle Testing Right Reason Not Measured WFL Comments Strength is 5/5 Left Extension (S1) 3+ Fair+ External Rotation 4+ Good+ Comments Strength is 5/5 except as indicated above. PT-OP-Q Treatments Start: 09/22/19 23:16 Freq: Status: Active Protocol: Document 10/21/19 09:06 LRN (Rec: 10/21/19 09:50 LRN [id number]) Therapeutic Exercises Supine Exercises DKTC stretch Supine Exercise Name DKTC stretch Reps/Minutes 10 hold x 10 Comments Extra time to train pt to do correctly Bridging Supine Exercise Name Bridging Side bilateral Reps/Minutes 10x Comments Extra time to train pt to do correctly Kegel in isolation Supine Exercise Name Kegel in isolation of TA, gluts, Hip AD Reps/Minutes 3' Comments Pt needed phy and v cuing to improve awareness of isolating PF Manual Therapy Treatment Joint Mobilizations L innominate Joint SIJ Direction Resisted L hip Flex Body Position Supine Comments MET correction R innominate Joint SIJ Direction Resisted R hip Ext Body Position Supine Comments MET correction Symmetry after doing both sides. Sacrum Joint Sacrum Direction Corrected mild L rotation of sacrum Body Position Prone Comments MET to derotate sacrum Self-Care/Home Management Treatment Education Patient Education Home Exercise Program Activities Self-Care/Home Management Activities Discussed progress to goals at length. Issued & reviewed HEP of self correction technique for rotated innominates. Discussed Julva, natural lubricant. PT-OP-T Assessment and Plan Start: 09/22/19 23:16 Freq: Status: Active Protocol: Document 10/21/19 09:06 LRN (Rec: 10/21/19 09:50 LRN [id number]) Physical Therapy Assessment Goals Five Impairment Tenderness of lateral lam of the vaginal opening. Short Term Goal (STG) Pt will be educated in proper PF care with referral to physician for recommendation of care. (10/14/19: Pt has seen MD for recommendation of PF redness). STG Duration 09/30/19 Four Impairment Sacroiliac instability with anteriorly rotated RLE/ posteriorly rotated LLE. Short Term Goal (STG) Correct Sacroiliac dysfunction (sacrum flexed, anterior rotated R innoiminate or R long leg) STG Duration 10/06/13 Assisted Goal (LTG) Pt will be able to self correction for her particular sacroiliac dysfunction to improve pelvic stability and improve her level of continence. LTG Duration 12/22/19 (10/21/19: Pt educated) Three Impairment Substitution of abdominal and gluteal ms to perform a PF contraction Short Term Goal (STG) Decrease use of associated abdominal/gluteal muscles when antione the PF. STG Duration 10/14/19 (10/14/19: MET GOAL) Assisted Goal (LTG) Pt will be able to perform a PF contraction in the absence of abdominal/gluteal muscles. LTG Duration 11/20/19 (10/21/19: MET GOAL) Two Impairment Urinary incontinence with lifting granddaughter and fast walking declines. Short Term Goal (STG) Improve PF strength per Long Hold to 8 sec's prior to fatigue and Quick Flicks to 8 reps prior to fatigue (Initial : Long Hold 5 secs, Quick Flick 5 prior to fatigue). Holding on PF check until fungal infection further cleared. STG Duration 10/21/19 High Lift Operator Goal (LTG) Pt will be able to maintain continence while lifting her granddaughter and fast walking declines. LTG Duration 12/22/19 (10/21/19: Less leakge w/grddtr no leakage on declines) One Impairment Pt lacks an independent self care HEP. High Lift Operator Goal (LTG) Pt will be independent in a self care HEP for PF strengthening. LTG Duration 12/22/19 (10/21/19: Progresssing pelvic alignement correction) Progress Towards Goals Progress Comments Pt educated in self mobs to correct her pelvic obliquity. She can go down declines without leaking and has less leakage with lifting of granddaughter. Assessment Summary Assessment Pt has fair understanding of self correction technique for pelvic obliquity and probably needs another review before discharge. Physical Therapy Plan Frequency and Duration Frequency of Treatment 1x/Week Plan of Care Start Date 09/23/19 Plan of Care End Date 12/22/19 Next Visit Focus/Plan Next Note Type Treatment Note Next Visit Plan Pt prefers DC; therefore review HEP (Clamshell & reverse clamshell and isolated PF contraction and self correction technique if needed ). Check pevic obliquity & Sacral positioning. Discuss proper PF care (goal 5). Review incorporating proper deep breathing with PF contraction with functional/ daily activities (transfers, lifting). Discuss incline walking, Core strengthening, and progress Roll in/out PF exercises and core strengthening. Will wait until vaginal tissues are healthier before assessing for tightness of PF.
--- NOTE | 2019-10-28 18:00 | PT.OTN ---
Current Diagnoses Stiffness of unspecified hip, not elsewhere classified (11/18/19) Muscle weakness (generalized) (11/18/19) Postmenopausal bleeding (11/18/19) Abnormal posture (11/18/19) Physical Therapy Treatment Note PT-OP-A Visit Information Start: 09/22/19 23:16 Freq: Status: Active Protocol: Document 11/22/19 09:01 LRN (Rec: 10/28/19 09:51 LRN [id number]) Out-Patient Physical Therapy Visit Information Visit Information Visit Type Treatment Note Visit Start Time 09:01 Visit Stop Time 09:58 Total Visit Minutes 57 Visit Number 6 Evaluation Information Evaluation Date 09/23/19 Precautions Precautions LATEX ALLERGY Unknown spot bleeding, possibly of pelvic region. Lesion adjacent to uterus inferior to fundus. PT-OP-B Current Condition Start: 09/22/19 23:16 Freq: Status: Active Protocol: Document 09/23/19 09:04 LRN (Rec: 09/23/19 09:59 LRN [id number]) Current Condition History of Current Condition Onset Date 5 yrs ago Current Complaints Urinary leakage intermittently , spotted bleeding of unknown origin. History of Current Condition Prior health history: Internal checks with speculum by Dr. Bhat was done and she was told vagina tissues were thinning. Chooses not to use estrogen cream due to fear cancer risk. She reports pain with intercourse, but no connection with spotting. She has had spotted bleeding when lifting her granddaughter (17 month old) up/down when lifting. She has undergone tests (see below) for the bleeding, but cause for bleeding is still unknown. Her urinary leakage is with running, fast walking, lifting of her granddaughter, but not with coughing or sneeezing. She does indicate she modifies her posture (cross legs) that may be why she is not leaking with those activities. She states her problem has been worse and got better, but now worse again. Prior Treatments and Tests Pelvic exams. Ultrasound, ruled out ovarian cancer. Endometrial biopsy was neg, and CA 125 was negative. Dx via ultrasound 08/02/19: Septated cystic lesion adjacent to the uterine fundus that doesn't appear to be associated with either ovary. Pt reports it has gotten smaller. Future Testing and Treatments Planned In 2 months (Nov) a 2nd ultrasound is planned. Treatment Goals Patient/Caregiver Goals Pt goal is to learn good exercises to build strength into muscles, and to run without leaking, to be able to walk faster on downhill walks without leaking, and to be able to play with her granddaughter without leaking. Prior Functional Status Baseline Function- ADL's Independent Baseline Function- Mobility Independent Baseline Function- Gait 5 yrs ago didn't leak with fast walking downhill. Baseline Function- Recreation/Hobbies 5 yrs ago didn't leak with running, lifting or backpacking. Current Functional Impairments (Reported) Functional Limitations- ADL's Urinary leaking with fast walking downhill, and with walking with a heavy backpack or granddaughter in a back pack. Urinary leakage with picking up and playing with 17 month old granddaughter, mainly towards end of day. Functional Limitations- Recreation/ Back packing causes urinary Hobbies leakage. Personal Factors Other Personal Factors That May Effect Unknown spot bleeding of Therapy/Recovery pelvic region. Cares and plays with her 17 month old granddaugher. PT-OP-C Subjective Start: 09/22/19 23:16 Freq: Status: Active Protocol: Document 11/22/19 09:01 LRN (Rec: 10/28/19 09:51 LRN [id number]) OP-PT Subjective Patient Comments Patient Comments States had after last treatment had a spasm across the back and shoulders and the next morning has had stiffness in the neck. Hips have been painful and inflammed. Used ice and heat on neck and across shoulders and spouse has been working on it. Pain is not all the time . Good relief of some pain after treatment. PT-OP-I Pelvic Floor Start: 09/22/19 23:16 Freq: Status: Active Protocol: Document 11/04/19 09:56 LRN (Rec: 11/04/19 17:36 LRN [id number]) Pelvic Floor Assessment Pelvic Clock Pelvic Clock Other Pt tender on lateral lam and posterior PF. Contraction Ability Manual Muscle Testing Left 2 Manual Muscle Testing Right 2 Manual Muscle Testing Anterior 3 Manual Muscle Testing Posterior 3 Muscle Endurance (Seconds) 3 Number of Quick Contractions In 10 2 Seconds Comments Pelvic Floor Comments PF contraction done in isolation of gluteals, hip AD' s and TA. PT-OP-J Posture/Palpation/Skin Start: 09/22/19 23:16 Freq: Status: Active Protocol: Document 11/22/19 09:01 LRN (Rec: 10/28/19 09:51 LRN [id number]) Palpation Assessment Location Leg lengths Palpation Location Medial malleolus Palpation Details R leg long PT-OP-K Range of Motion Start: 09/22/19 23:16 Freq: Status: Active Protocol: Document 11/04/19 09:56 LRN (Rec: 11/04/19 11:16 LRN [id number]) Hip Goniometric Range of Motion Hip Right Passive Internal Rotation 40 External Rotation 65 Left Passive Internal Rotation 33 External Rotation 65 PT-OP-M Strength Start: 09/22/19 23:16 Freq: Status: Active Protocol: Document 09/23/19 09:04 LRN (Rec: 09/23/19 19:57 LRN [id number]) Hip Strength Hip Manual Muscle Testing Right Reason Not Measured WFL Comments Strength is 5/5 Left Extension (S1) 3+ Fair+ External Rotation 4+ Good+ Comments Strength is 5/5 except as indicated above. PT-OP-Q Treatments Start: 09/22/19 23:16 Freq: Status: Active Protocol: Document 11/22/19 09:01 LRN (Rec: 10/28/19 09:51 LRN [id number]) Therapeutic Exercises Supine Exercises TA Supine Exercise Name TA/Pf Reps/Minutes 10x 10 hold Manual Therapy Treatment Soft Tissue Mobilization MET QL stretch Body Location MET QL stretch with RLE distraction Mobilization Type Myofascial Release Body Position Supine L low back Body Location Ridge upper gluteals, Piriformis (at isch tub), and QL Mobilization Type Strumming,Sustained Pressure, Trigger Point Release Intensity/Depth Moderate Body Position Prone Comments Pt slightly tight on the left side to end. Joint Mobilizations Sacrum Joint Sacrum Direction Correction for mild L rotation of sacrum Body Position Prone Comments MET attempted, not able to correct. Attempted in supine: pressure at Upper L sacral border. Pt had increased tightness at left Ishial tub requiring STM & TrP treatment to L hip rotators at lateral ischial tuberosity. Self-Care/Home Management Treatment Education Other Education Educated pt in self trunk SB stretch away from areas of tightness of upper back and low back & in pec stretch with towel roll along spine. Educated pt in self neck stretch for L anterior, medial and posterior scalenes. PT-OP-R Modalities Start: 09/22/19 23:16 Freq: Status: Active Protocol: Document 11/22/19 09:01 LRN (Rec: 10/28/19 09:51 LRN [id number]) Hot Pack/Cold Pack Treatment Cold Pack Location Low back Patient Position Hooklying Treatment Duration (minutes) 10 Comments Bolster under legs PT-OP-T Assessment and Plan Start: 09/22/19 23:16 Freq: Status: Active Protocol: Document 11/22/19 09:01 LRN (Rec: 10/28/19 09:51 LRN [id number]) Physical Therapy Assessment Goals Five Impairment Tenderness of lateral lam of the vaginal opening. Short Term Goal (STG) Pt will be educated in proper PF care with referral to physician for recommendation of care. (10/14/19: Pt has seen MD for recommendation of PF redness). STG Duration 09/30/19 Four Impairment Sacroiliac instability with anteriorly rotated RLE/ posteriorly rotated LLE. Short Term Goal (STG) Correct Sacroiliac dysfunction (sacrum flexed, anterior rotated R innoiminate or R long leg) STG Duration 10/06/13 Nursing Home Goal (LTG) Pt will be able to self correction for her particular sacroiliac dysfunction to improve pelvic stability and improve her level of continence. LTG Duration 12/22/19 (10/21/19: Pt educated) Three Impairment Substitution of abdominal and gluteal ms to perform a PF contraction Short Term Goal (STG) Decrease use of associated abdominal/gluteal muscles when antione the PF. STG Duration 10/14/19 (10/14/19: MET GOAL) Pillowcase Turner Goal (LTG) Pt will be able to perform a PF contraction in the absence of abdominal/gluteal muscles. LTG Duration 11/20/19 (10/21/19: MET GOAL) Two Impairment Urinary incontinence with lifting granddaughter and fast walking declines. Short Term Goal (STG) Improve PF strength per Long Hold to 8 sec's prior to fatigue and Quick Flicks to 8 reps prior to fatigue (Initial : Long Hold 5 secs, Quick Flick 5 prior to fatigue). Holding on PF check until fungal infection further cleared. STG Duration 10/21/19 Pillowcase Turner Goal (LTG) Pt will be able to maintain continence while lifting her granddaughter and fast walking declines. LTG Duration 12/22/19 (10/21/19: Less leakge w/grddtr no leakage on declines) One Impairment Pt lacks an independent self care HEP. Nursing Home Goal (LTG) Pt will be independent in a self care HEP for PF strengthening. LTG Duration 12/22/19 (10/21/19: Progresssing pelvic alignement correction) Progress Towards Goals Progress Comments Pain decreased from 6-8/10 to mild (2/10) after treatment and cryotherapy. Assessment Summary Assessment Changes in pelvis appears to be shifting spine with discomfort thoughout back due to soft tissue tightness. Pt is tight in L low back, R upper back (shoulder blades level) and L Scalenes. Her L hip rotators are tight and are creating torsion of her sacrum. Pt had much relief from pain after STM treatment. Physical Therapy Plan Frequency and Duration Frequency of Treatment 1x/Week Plan of Care Start Date 09/23/19 Plan of Care End Date 12/22/19 Next Visit Focus/Plan Next Note Type Treatment Note Next Visit Plan Pt agreeable to 2 more treatment sessions to progress to independent self care once she is stable in pelvis. DC self care self mob of SIJ. Review HEP (Clamshell & reverse clamshell and isolated PF contraction and self correction technique if needed ). Check pevic obliquity & Sacral positioning, treat with active stretch. Discuss proper PF care (goal 5). Review incorporating proper deep breathing with PF contraction with functional/ daily activities (transfers, lifting). Discuss incline walking, Core strengthening, and progress Roll in/out PF exercises and core strengthening. Will wait until vaginal tissues are healthier before assessing for tightness of PF.
--- NOTE | 2019-11-04 17:57 | PT.OTN ---
Current Diagnoses Stiffness of unspecified hip, not elsewhere classified (11/18/19) Muscle weakness (generalized) (11/18/19) Postmenopausal bleeding (11/18/19) Abnormal posture (11/18/19) Physical Therapy Treatment Note PT-OP-A Visit Information Start: 09/22/19 23:16 Freq: Status: Active Protocol: Document 11/22/19 09:56 LRN (Rec: 11/04/19 11:16 LRN [id number]) Out-Patient Physical Therapy Visit Information Visit Information Visit Type Treatment Note Visit Start Time 09:56 Visit Stop Time 10:46 Total Visit Minutes 50 Visit Number 7 Evaluation Information Evaluation Date 09/23/19 Precautions Precautions LATEX ALLERGY Unknown spot bleeding, possibly of pelvic region. Lesion adjacent to uterus inferior to fundus. PT-OP-B Current Condition Start: 09/22/19 23:16 Freq: Status: Active Protocol: Document 09/23/19 09:04 LRN (Rec: 09/23/19 09:59 LRN [id number]) Current Condition History of Current Condition Onset Date 5 yrs ago Current Complaints Urinary leakage intermittently , spotted bleeding of unknown origin. History of Current Condition Prior health history: Internal checks with speculum by Dr. Bhat was done and she was told vagina tissues were thinning. Chooses not to use estrogen cream due to fear cancer risk. She reports pain with intercourse, but no connection with spotting. She has had spotted bleeding when lifting her granddaughter (17 month old) up/down when lifting. She has undergone tests (see below) for the bleeding, but cause for bleeding is still unknown. Her urinary leakage is with running, fast walking, lifting of her granddaughter, but not with coughing or sneeezing. She does indicate she modifies her posture (cross legs) that may be why she is not leaking with those activities. She states her problem has been worse and got better, but now worse again. Prior Treatments and Tests Pelvic exams. Ultrasound, ruled out ovarian cancer. Endometrial biopsy was neg, and CA 125 was negative. Dx via ultrasound 08/02/19: Septated cystic lesion adjacent to the uterine fundus that doesn't appear to be associated with either ovary. Pt reports it has gotten smaller. Future Testing and Treatments Planned In 2 months (Nov) a 2nd ultrasound is planned. Treatment Goals Patient/Caregiver Goals Pt goal is to learn good exercises to build strength into muscles, and to run without leaking, to be able to walk faster on downhill walks without leaking, and to be able to play with her granddaughter without leaking. Prior Functional Status Baseline Function- ADL's Independent Baseline Function- Mobility Independent Baseline Function- Gait 5 yrs ago didn't leak with fast walking downhill. Baseline Function- Recreation/Hobbies 5 yrs ago didn't leak with running, lifting or backpacking. Current Functional Impairments (Reported) Functional Limitations- ADL's Urinary leaking with fast walking downhill, and with walking with a heavy backpack or granddaughter in a back pack. Urinary leakage with picking up and playing with 17 month old granddaughter, mainly towards end of day. Functional Limitations- Recreation/ Back packing causes urinary Hobbies leakage. Personal Factors Other Personal Factors That May Effect Unknown spot bleeding of Therapy/Recovery pelvic region. Cares and plays with her 17 month old granddaugher. PT-OP-C Subjective Start: 09/22/19 23:16 Freq: Status: Active Protocol: Document 11/22/19 09:56 LRN (Rec: 11/04/19 11:16 LRN [id number]) OP-PT Subjective Patient Comments Patient Comments Much better, movement and back is no pain. A little tension in L upper shoulder. Sneezed a couple times and no leakage . States she has a little redness in the upper inner thigh. She has completed the anti-fungal medication with no change. She thinks her ribbon blockmaker may have been right in calling it [place] because it is slowly going away. PT-OP-I Pelvic Floor Start: 09/22/19 23:16 Freq: Status: Active Protocol: Document 11/22/19 09:56 LRN (Rec: 11/04/19 17:36 LRN [id number]) Pelvic Floor Assessment Pelvic Clock Pelvic Clock Other Pt tender on lateral lam and posterior PF. Contraction Ability Manual Muscle Testing Left 2 Manual Muscle Testing Right 2 Manual Muscle Testing Anterior 3 Manual Muscle Testing Posterior 3 Muscle Endurance (Seconds) 3 Number of Quick Contractions In 10 2 Seconds Comments Pelvic Floor Comments PF contraction done in isolation of gluteals, hip AD' s and TA. PT-OP-J Posture/Palpation/Skin Start: 09/22/19 23:16 Freq: Status: Active Protocol: Document 10/28/19 09:01 LRN (Rec: 10/28/19 09:51 LRN [id number]) Palpation Assessment Location Leg lengths Palpation Location Medial malleolus Palpation Details R leg long PT-OP-K Range of Motion Start: 09/22/19 23:16 Freq: Status: Active Protocol: Document 11/22/19 09:56 LRN (Rec: 11/04/19 11:16 LRN [id number]) Hip Goniometric Range of Motion Hip Right Passive Internal Rotation 40 External Rotation 65 Left Passive Internal Rotation 33 External Rotation 65 PT-OP-M Strength Start: 09/22/19 23:16 Freq: Status: Active Protocol: Document 09/23/19 09:04 LRN (Rec: 09/23/19 19:57 LRN [id number]) Hip Strength Hip Manual Muscle Testing Right Reason Not Measured WFL Comments Strength is 5/5 Left Extension (S1) 3+ Fair+ External Rotation 4+ Good+ Comments Strength is 5/5 except as indicated above. PT-OP-Q Treatments Start: 09/22/19 23:16 Freq: Status: Active Protocol: Document 11/22/19 09:56 LRN (Rec: 11/04/19 11:16 LRN [id number]) Therapeutic Exercises Supine Exercises Kegel in isolation Supine Exercise Name Kegel in isolation of TA, gluts, Hip AD Reps/Minutes 3' Comments Pt needed phy and v cuing to improve awareness of isolating PF Piriformis stretch Supine Exercise Name Piriformis stretch (pulling knee to opposite shoulder) Side bilateral Reps/Minutes 4' Comments Physical & v. cuing to find optimum stretch Lateral hip stretch Supine Exercise Name Lateral hip stretch Side bilateral Reps/Minutes 4' Comments Physical & v. cuing to find optimum stretch Fig 4 stretch Supine Exercise Name Fig 4 stretch f/b active stretch Side bilateral Reps/Minutes 4' Comments Physical & v. cuing for active stretch Manual Therapy Treatment Soft Tissue Mobilization PF vaginally Body Location Posterior and lateral wall of Pelvic Floor Mobilization Type Trigger Point Release Intensity/Depth Superficial Body Position Hooklying Comments Positive response to TrP release. Tenderness persisted in areas of the Obturator Internus bilaterally. Self-Care/Home Management Treatment Education Other Education Educated pt in all aspects of proper vulvar care. Educated pt in use of Med vaginal dilator for PF stretching and discussed precautions of use of proper pressure to use, use with gel, and for painfree stretching. Reviewed, discussed and educated pt in home exercise routine that might provide the most beneficial outcome to her home program. Activities Self-Care/Home Management Activities Issued & reviewed handouts for proper vulvar care. Issued Med vaginal dilator after educating pt on use. DC'd self pelvic mob, but pt to continue with core ex of bridging and DKTC stretch. PT-OP-R Modalities Start: 09/22/19 23:16 Freq: Status: Active Protocol: Document 10/28/19 09:01 LRN (Rec: 10/28/19 09:51 LRN [id number]) Hot Pack/Cold Pack Treatment Cold Pack Location Low back Patient Position Hooklying Treatment Duration (minutes) 10 Comments Bolster under legs PT-OP-T Assessment and Plan Start: 09/22/19 23:16 Freq: Status: Active Protocol: Document 11/22/19 09:56 LRN (Rec: 11/04/19 11:16 LRN [id number]) Physical Therapy Assessment Goals Five Impairment Tenderness of lateral lam of the vaginal opening. Short Term Goal (STG) Pt will be educated in proper PF care with referral to physician for recommendation of care. (10/14/19: Pt has seen MD for recommendation of PF redness). STG Duration 09/30/19 (11/04/19: MET GOAL) Four Impairment Sacroiliac instability with anteriorly rotated RLE/ posteriorly rotated LLE. Short Term Goal (STG) Correct Sacroiliac dysfunction (sacrum flexed, anterior rotated R innoiminate or R long leg) STG Duration 10/06/13 (11/04/19: MET GOAL) Detention Goal (LTG) Pt will be able to self correction for her particular sacroiliac dysfunction to improve pelvic stability and improve her level of continence. LTG Duration 12/22/19 (11/04/19: Not needed) Three Impairment Substitution of abdominal and gluteal ms to perform a PF contraction Short Term Goal (STG) Decrease use of associated abdominal/gluteal muscles when antione the PF. STG Duration 10/14/19 (10/14/19: MET GOAL) Airworthiness Inspector Goal (LTG) Pt will be able to perform a PF contraction in the absence of abdominal/gluteal muscles. LTG Duration 11/20/19 (10/21/19: MET GOAL) Two Impairment Urinary incontinence with lifting granddaughter and fast walking declines. Short Term Goal (STG) Improve PF strength per Long Hold to 8 sec's prior to fatigue and Quick Flicks to 8 reps prior to fatigue (Initial : Long Hold 5 secs, Quick Flick 5 prior to fatigue). (11/04/19: Long Hold 3 secs, Quikc Flicks 2-3 reps with an isolated PF contraction) STG Duration 10/21/19 Detention Goal (LTG) Pt will be able to maintain continence while lifting her granddaughter and fast walking declines. LTG Duration 12/22/19 (10/21/19: Less leakge w/grddtr no leakage on declines) One Impairment Pt lacks an independent self care HEP. Airworthiness Inspector Goal (LTG) Pt will be independent in a self care HEP for PF strengthening. LTG Duration 12/22/19 Progress Towards Goals Progress Comments Pt is able to perform an isolated PF contraction. Pt appears to have a stable pelvis without pelvic obliquity. Assessment Summary Assessment Pt demonstrates the ability to isolate her PF contraction but externally there is no clitoral nod. She appears to have weakness of her superficial muscles, but is able to perform a coordinated PF contraction with breathing technique to assist in drawing up of PF. Her PF strength appears weaker because strength was measured in isolation of substitute muscles. Her PF tenderness on the lateral lam are in the area of the Obturator Internus muscles bilaterally and since she is still restricted in hip mobility her tenderness may be more hip related than PF on the lateral lam. Tenderness posteriorly may be PF tension. Her pain with insertion with intercourse appears to be soft tissue related with mild redness present in the entry of the vaginal tissues. Overall she is improved in her tissue redness with no area of extreme redness present. Physical Therapy Plan Frequency and Duration Frequency of Treatment 1x/Week Plan of Care Start Date 09/23/19 Plan of Care End Date 12/22/19 Next Visit Focus/Plan Next Note Type Treatment Note Next Visit Plan Pt agreeable to wait 2 weeks before returning for possibly her last visit to progress her to independent self care since her pelvis appears to have been stable since the last visit. Pt needs training and self care I/S to promote superficial PF contractions ( clitoral nod activation). Review HEP (Clamshell & reverse clamshell ). Check pevic obliquity & Sacral positioning, treat with active stretch. Discuss proper PF care (goal 5). Review incorporating proper deep breathing with PF contraction with functional/daily activities (transfers, lifting ). Discuss incline walking, Core strengthening, and progress Roll in/out PF exercises and core strengthening. Will wait until vaginal tissues are healthier before assessing for tightness of PF.
--- NOTE | 2019-11-22 17:53 | PT.OTN ---
Current Diagnoses Stiffness of unspecified hip, not elsewhere classified (11/18/19) Muscle weakness (generalized) (11/18/19) Postmenopausal bleeding (11/18/19) Abnormal posture (11/18/19) Physical Therapy Treatment Note PT-OP-A Visit Information Start: 09/22/19 23:16 Freq: Status: Active Protocol: Document 11/18/19 09:53 LRN (Rec: 11/18/19 11:17 LRN [id number]) Out-Patient Physical Therapy Visit Information Visit Information Visit Type Treatment Note Visit Start Time 09:53 Visit Stop Time 10:37 Total Visit Minutes 44 Visit Number 8 Precautions Precautions LATEX ALLERGY Unknown spot bleeding, possibly of pelvic region. Lesion adjacent to uterus inferior to fundus. PT-OP-B Current Condition Start: 09/22/19 23:16 Freq: Status: Active Protocol: Document 09/23/19 09:04 LRN (Rec: 09/23/19 09:59 LRN [id number]) Current Condition History of Current Condition Onset Date 5 yrs ago Current Complaints Urinary leakage intermittently , spotted bleeding of unknown origin. History of Current Condition Prior health history: Internal checks with speculum by Dr. Bhat was done and she was told vagina tissues were thinning. Chooses not to use estrogen cream due to fear cancer risk. She reports pain with intercourse, but no connection with spotting. She has had spotted bleeding when lifting her granddaughter (17 month old) up/down when lifting. She has undergone tests (see below) for the bleeding, but cause for bleeding is still unknown. Her urinary leakage is with running, fast walking, lifting of her granddaughter, but not with coughing or sneeezing. She does indicate she modifies her posture (cross legs) that may be why she is not leaking with those activities. She states her problem has been worse and got better, but now worse again. Prior Treatments and Tests Pelvic exams. Ultrasound, ruled out ovarian cancer. Endometrial biopsy was neg, and CA 125 was negative. Dx via ultrasound 08/02/19: Septated cystic lesion adjacent to the uterine fundus that doesn't appear to be associated with either ovary. Pt reports it has gotten smaller. Future Testing and Treatments Planned In 2 months (Nov) a 2nd ultrasound is planned. Treatment Goals Patient/Caregiver Goals Pt goal is to learn good exercises to build strength into muscles, and to run without leaking, to be able to walk faster on downhill walks without leaking, and to be able to play with her granddaughter without leaking. Prior Functional Status Baseline Function- ADL's Independent Baseline Function- Mobility Independent Baseline Function- Gait 5 yrs ago didn't leak with fast walking downhill. Baseline Function- Recreation/Hobbies 5 yrs ago didn't leak with running, lifting or backpacking. Current Functional Impairments (Reported) Functional Limitations- ADL's Urinary leaking with fast walking downhill, and with walking with a heavy backpack or granddaughter in a back pack. Urinary leakage with picking up and playing with 17 month old granddaughter, mainly towards end of day. Functional Limitations- Recreation/ Back packing causes urinary Hobbies leakage. Personal Factors Other Personal Factors That May Effect Unknown spot bleeding of Therapy/Recovery pelvic region. Cares and plays with her 17 month old granddaugher. PT-OP-C Subjective Start: 09/22/19 23:16 Freq: Status: Active Protocol: Document 11/18/19 09:53 LRN (Rec: 11/18/19 11:17 LRN [id number]) OP-PT Subjective Patient Comments Patient Comments Disappointed. States she walked fast and felt like she had not done any PF work at all. Leaked and felt like she had no control. States that he lower back hurt when she walked. Hasn't had spotting that she can remember with her granddaughter. PT-OP-I Pelvic Floor Start: 09/22/19 23:16 Freq: Status: Active Protocol: Document 11/04/19 09:56 LRN (Rec: 11/04/19 17:36 LRN [id number]) Pelvic Floor Assessment Pelvic Clock Pelvic Clock Other Pt tender on lateral lam and posterior PF. Contraction Ability Manual Muscle Testing Left 2 Manual Muscle Testing Right 2 Manual Muscle Testing Anterior 3 Manual Muscle Testing Posterior 3 Muscle Endurance (Seconds) 3 Number of Quick Contractions In 10 2 Seconds Comments Pelvic Floor Comments PF contraction done in isolation of gluteals, hip AD' s and TA. PT-OP-J Posture/Palpation/Skin Start: 09/22/19 23:16 Freq: Status: Active Protocol: Document 10/28/19 09:01 LRN (Rec: 10/28/19 09:51 LRN [id number]) Palpation Assessment Location Leg lengths Palpation Location Medial malleolus Palpation Details R leg long PT-OP-K Range of Motion Start: 09/22/19 23:16 Freq: Status: Active Protocol: Document 11/04/19 09:56 LRN (Rec: 11/04/19 11:16 LRN [id number]) Hip Goniometric Range of Motion Hip Right Passive Internal Rotation 40 External Rotation 65 Left Passive Internal Rotation 33 External Rotation 65 PT-OP-M Strength Start: 09/22/19 23:16 Freq: Status: Active Protocol: Document 09/23/19 09:04 LRN (Rec: 09/23/19 19:57 LRN [id number]) Hip Strength Hip Manual Muscle Testing Right Reason Not Measured WFL Comments Strength is 5/5 Left Extension (S1) 3+ Fair+ External Rotation 4+ Good+ Comments Strength is 5/5 except as indicated above. PT-OP-Q Treatments Start: 09/22/19 23:16 Freq: Status: Active Protocol: Document 11/18/19 09:53 LRN (Rec: 11/18/19 11:17 LRN [id number]) Manual Therapy Treatment Soft Tissue Mobilization Hip AD's Body Location Hip AD's R>L Mobilization Type Trigger Point Release Intensity/Depth Moderate Body Position Supine Bladder Body Location Lift of bladder cephalad Body Position Supine Comments Stiff on left side Abdomen Body Location L lateral abdomen and center Urachus Lig Mobilization Type Myofascial Release,Trigger Point Release Intensity/Depth Superficial Body Position Supine Comments Lateral mobilization Suprapubic Body Location Suprapubic region, multiple sites Mobilization Type Trigger Point Release Intensity/Depth Superficial Body Position Supine Comments Pt able to get awareness of release of TrP and able to perform self TrP release. Self-Care/Home Management Treatment Education Other Education Discussed ex appropriateness ( intensity), discussed cleaning of PF (review of handout), discussed lubricants with intercourse (skin irritation). PT-OP-R Modalities Start: 09/22/19 23:16 Freq: Status: Active Protocol: Document 10/28/19 09:01 LRN (Rec: 10/28/19 09:51 LRN [id number]) Hot Pack/Cold Pack Treatment Cold Pack Location Low back Patient Position Hooklying Treatment Duration (minutes) 10 Comments Bolster under legs PT-OP-T Assessment and Plan Start: 09/22/19 23:16 Freq: Status: Active Protocol: Document 11/18/19 09:53 LRN (Rec: 11/18/19 11:17 LRN [id number]) Physical Therapy Assessment Goals Five Impairment Tenderness of lateral lam of the vaginal opening. Short Term Goal (STG) Pt will be educated in proper PF care with referral to physician for recommendation of care. (10/14/19: Pt has seen MD for recommendation of PF redness). STG Duration 09/30/19 (11/04/19: MET GOAL) Four Impairment Sacroiliac instability with anteriorly rotated RLE/ posteriorly rotated LLE. Short Term Goal (STG) Correct Sacroiliac dysfunction (sacrum flexed, anterior rotated R innoiminate or R long leg) STG Duration 10/06/13 (11/04/19: MET GOAL) Fdc Goal (LTG) Pt will be able to self correction for her particular sacroiliac dysfunction to improve pelvic stability and improve her level of continence. LTG Duration 12/22/19 (11/04/19 & 11/18/19: Not needed) Three Impairment Substitution of abdominal and gluteal ms to perform a PF contraction Short Term Goal (STG) Decrease use of associated abdominal/gluteal muscles when antione the PF. STG Duration 10/14/19 (10/14/19: MET GOAL) Fdc Goal (LTG) Pt will be able to perform a PF contraction in the absence of abdominal/gluteal muscles. LTG Duration 11/20/19 (10/21/19: MET GOAL) Two Impairment Urinary incontinence with lifting granddaughter and fast walking declines. Short Term Goal (STG) Improve PF strength per Long Hold to 8 sec's prior to fatigue and Quick Flicks to 8 reps prior to fatigue (Initial : Long Hold 5 secs, Quick Flick 5 prior to fatigue). (11/04/19: Long Hold 3 secs, Quikc Flicks 2-3 reps with an isolated PF contraction) STG Duration 10/21/19 Fdc Goal (LTG) Pt will be able to maintain continence while lifting her granddaughter and fast walking declines. LTG Duration 12/22/19 (10/21/19: Less leakage w/grddtr no leakage on declines) One Impairment Pt lacks an independent self care HEP. Content Strategy Lead Goal (LTG) Pt will be independent in a self care HEP for PF strengthening. LTG Duration 12/22/19 Assessment Summary Assessment Pt did not need innominate correction. She did have multiple areas of TrPs in abdomen (L>R) and hip adductors. Pt has good awareness of self TrP treatment in abdomen above pube. Red/rash almost gone in thighs and PF region. Of the PF, pt had redness and tenderness of Labia minor/ majora, otherwise her PF tissue health is good. She had tightness of her PF and had tenderness in both superficial and deep PF muscles in all areas of the PF clock. She had bumps that were tender, almost cyst-like. Pt to see MD soon; therefore pt will discuss tenderness and use of estrogen cream vs estrogen ring. The ring has possibly dropped on the left side with palpation with of it at 1-1/2 knuckle distance from vaginal opening. Physical Therapy Plan Frequency and Duration Frequency of Treatment 1x/Week Plan of Care Start Date 09/23/19 Plan of Care End Date 12/22/19 Next Visit Focus/Plan Next Note Type Treatment Note Next Visit Plan Pt would like to continue 1x/ week for STM of abdomen and PF stretching, training for use of dilator. Pt needs further training and self care I/S to promote superficial PF contractions (clitoral nod activation). Review HEP ( Clamshell & reverse clamshell ). Monitor for blood spotting when with granddaughter and for pevic obliquity & Sacral positioning, treat with active stretch. Discuss incline walking and walking to prevent urinary leakage, Core strengthening, and progress Roll in/out for core strengthening and address LBP as it effects her level of continence.
--- NOTE | 2020-02-20 17:07 | PT.OPDS ---
Current Diagnoses Stiffness of unspecified hip, not elsewhere classified (11/18/19) Muscle weakness (generalized) (11/18/19) Postmenopausal bleeding (11/18/19) Abnormal posture (11/18/19) Visit Care Team Role Provider Type Jc Rodriguez DO Primary Care Provider Physician Specialty: [facility] Address: [address] [place] [address], [id number] Email: POORNIMA Perez Attending Provider Advanced Refining Engineer Referring Provider Specialty: [facility] Address: [address] [place] [address], [id number] Email: [email or web address] Visit Number Visit Number 8 Discharge Summary PT-OP-B Current Condition Start: 09/22/19 23:16 Freq: Status: Active Protocol: Document 09/23/19 09:04 LRN (Rec: 09/23/19 09:59 LRN [id number]) Current Condition History of Current Condition Onset Date 5 yrs ago Current Complaints Urinary leakage intermittently , spotted bleeding of unknown origin. History of Current Condition Prior health history: Internal checks with speculum by Dr. Bhat was done and she was told vagina tissues were thinning. Chooses not to use estrogen cream due to fear cancer risk. She reports pain with intercourse, but no connection with spotting. She has had spotted bleeding when lifting her granddaughter (17 month old) up/down when lifting. She has undergone tests (see below) for the bleeding, but cause for bleeding is still unknown. Her urinary leakage is with running, fast walking, lifting of her granddaughter, but not with coughing or sneeezing. She does indicate she modifies her posture (cross legs) that may be why she is not leaking with those activities. She states her problem has been worse and got better, but now worse again. Prior Treatments and Tests Pelvic exams. Ultrasound, ruled out ovarian cancer. Endometrial biopsy was neg, and CA 125 was negative. Dx via ultrasound 08/02/19: Septated cystic lesion adjacent to the uterine fundus that doesn't appear to be associated with either ovary. Pt reports it has gotten smaller. Future Testing and Treatments Planned In 2 months (Nov) a 2nd ultrasound is planned. Treatment Goals Patient/Caregiver Goals Pt goal is to learn good exercises to build strength into muscles, and to run without leaking, to be able to walk faster on downhill walks without leaking, and to be able to play with her granddaughter without leaking. Prior Functional Status Baseline Function- ADL's Independent Baseline Function- Mobility Independent Baseline Function- Gait 5 yrs ago didn't leak with fast walking downhill. Baseline Function- Recreation/Hobbies 5 yrs ago didn't leak with running, lifting or backpacking. Current Functional Impairments (Reported) Functional Limitations- ADL's Urinary leaking with fast walking downhill, and with walking with a heavy backpack or granddaughter in a back pack. Urinary leakage with picking up and playing with 17 month old granddaughter, mainly towards end of day. Functional Limitations- Recreation/ Back packing causes urinary Hobbies leakage. Personal Factors Other Personal Factors That May Effect Unknown spot bleeding of Therapy/Recovery pelvic region. Cares and plays with her 17 month old granddaugher. PT-OP-C Subjective Start: 09/22/19 23:16 Freq: Status: Active Protocol: Document 02/20/20 16:42 LRN (Rec: 02/20/20 17:07 LRN [id number]) OP-PT Subjective Patient Comments Patient Comments States she ended up having surgery and had oophorectomy ( tubes and ovaries out), end of December. All the cells removed were normal. States she wanted to check in with therapist. States she is doing good with no more bleeding. Has estrogen ring and doesn't need therapy. Feels she has tools to PT-OP-I Pelvic Floor Start: 09/22/19 23:16 Freq: Status: Active Protocol: Document 11/04/19 09:56 LRN (Rec: 11/04/19 17:36 LRN [id number]) Pelvic Floor Assessment Pelvic Clock Pelvic Clock Other Pt tender on lateral lam and posterior PF. Contraction Ability Manual Muscle Testing Left 2 Manual Muscle Testing Right 2 Manual Muscle Testing Anterior 3 Manual Muscle Testing Posterior 3 Muscle Endurance (Seconds) 3 Number of Quick Contractions In 10 2 Seconds Comments Pelvic Floor Comments PF contraction done in isolation of gluteals, hip AD' s and TA. PT-OP-J Posture/Palpation/Skin Start: 09/22/19 23:16 Freq: Status: Active Protocol: Document 10/28/19 09:01 LRN (Rec: 10/28/19 09:51 LRN [id number]) Palpation Assessment Location Leg lengths Palpation Location Medial malleolus Palpation Details R leg long PT-OP-K Range of Motion Start: 09/22/19 23:16 Freq: Status: Active Protocol: Document 11/04/19 09:56 LRN (Rec: 11/04/19 11:16 LRN [id number]) Hip Goniometric Range of Motion Hip Right Passive Internal Rotation 40 External Rotation 65 Left Passive Internal Rotation 33 External Rotation 65 PT-OP-M Strength Start: 09/22/19 23:16 Freq: Status: Active Protocol: Document 09/23/19 09:04 LRN (Rec: 09/23/19 19:57 LRN [id number]) Hip Strength Hip Manual Muscle Testing Right Reason Not Measured WFL Comments Strength is 5/5 Left Extension (S1) 3+ Fair+ External Rotation 4+ Good+ Comments Strength is 5/5 except as indicated above. PT-OP-T Assessment and Plan Start: 09/22/19 23:16 Freq: Status: Active Protocol: Document 02/20/20 16:42 LRN (Rec: 02/20/20 17:07 LRN [id number]) Physical Therapy Assessment Goals Five Impairment Tenderness of lateral lam of the vaginal opening. Short Term Goal (STG) Pt will be educated in proper PF care with referral to physician for recommendation of care. (10/14/19: Pt has seen MD for recommendation of PF redness). STG Duration 09/30/19 (11/04/19: MET GOAL) Four Impairment Sacroiliac instability with anteriorly rotated RLE/ posteriorly rotated LLE. Short Term Goal (STG) Correct Sacroiliac dysfunction (sacrum flexed, anterior rotated R innoiminate or R long leg) STG Duration 10/06/13 (11/04/19: MET GOAL) Meter Shop Supervisor Goal (LTG) Pt will be able to self correction for her particular sacroiliac dysfunction to improve pelvic stability and improve her level of continence. LTG Duration 12/22/19 (11/04/19 & 11/18/19: Not needed) Three Impairment Substitution of abdominal and gluteal ms to perform a PF contraction Short Term Goal (STG) Decrease use of associated abdominal/gluteal muscles when antione the PF. STG Duration 10/14/19 (10/14/19: MET GOAL) Intermediate Goal (LTG) Pt will be able to perform a PF contraction in the absence of abdominal/gluteal muscles. LTG Duration 11/20/19 (10/21/19: MET GOAL) Two Impairment Urinary incontinence with lifting granddaughter and fast walking declines. Short Term Goal (STG) Improve PF strength per Long Hold to 8 sec's prior to fatigue and Quick Flicks to 8 reps prior to fatigue (Initial : Long Hold 5 secs, Quick Flick 5 prior to fatigue). (11/04/19: Long Hold 3 secs, Quikc Flicks 2-3 reps with an isolated PF contraction) STG Duration 10/21/19 (02/20/20: NOT MET. Pt unavailable for final assessment) Intermediate Goal (LTG) Pt will be able to maintain continence while lifting her granddaughter and fast walking declines. (10/21/19: Less leakage w/ grddtr no leakage on declines) LTG Duration 12/22/19 (02/20/20: NOT MET. Pt unavailable for final assessment) One Impairment Pt lacks an independent self care HEP. Intermediate Goal (LTG) Pt will be independent in a self care HEP for PF strengthening. LTG Duration 12/22/19 (02/20/20: Pt started on HEP. NOT MET. Early discharge) Assessment Summary Assessment Overall the pt was educated in self care techniques and started on a self care HEP. She was last seen 11/18/19 and per verbal report underwent an oophorectomy, which took care of her bleeding and was found to have normal cervical cells . The pt has a program of self care to continue working on improving her PF strength and to decrease her pain when physically appropriate through PF stretching if needed. The pt will need a new physical therapy referral to return to therapy and the pt is aware. She may benefit from therapy in the future for PF pain if she is not able to manage it on her own. Physical Therapy Plan Discharge Physical Therapy Discharge Reasons No Longer Attending PT Discharge Comments Pt may benefit from physical therapy in the future, due to her early discontinuation of therapy, if she is not able to manage her PF pain on her self care program. Thank you for your referral.
== END 2020-03-02 09:52 | disposition home or self-care (01) ==
LOC: PHYS 09:45
PROVIDERS: PCP Family Medicine; Referring Provider Nurse Practitioner; Visit Provider Nurse Practitioner
DX: N95.0 Postmenopausal bleeding (principal); M62.81 Muscle weakness (generalized); M25.659 Stiffness of unspecified hip, not elsewhere classified; R29.3 Abnormal posture
CPT/HCPCS: 97110; 97140; 97162; 97535

== ENCOUNTER → 2019-12-18 14:21 | Outpatient (CLI) | payer BC, SELFPAY ==
[2019-12-20 08:49] LABS: COVID19 Sendout Not Detected (Not Detect)
== END ==
PROVIDERS: PCP Family Medicine; Visit Provider Nurse Practitioner
DX: Z01.812 Encounter for preprocedural laboratory examination (principal)
CPT/HCPCS: 87635

== ENCOUNTER → 2019-12-21 13:43 | Outpatient (CLI) | payer BC, SELFPAY ==
--- NOTE | 2019-12-21 | DI.ECHO.S_ITS ---
[facility] +---------+ : : [address] [place] [address] : : : : [id number] : : : : Phone: [phone]---------+ Echocardiogram Report + + :Name: JERMAIN BOWLES Study Date: 12/21/2019 Height: 66 in : :[facility] Weight: 163 lb : : Gender: Female BSA: 1.8 m2 : :: 1955 Age: 64 yrs BP: 149/93 mmHg: :Reason For Study: PALPITATIONS : :Ordering Physician: Bora : :Annalisa Holley Performed By: Estefanía Birmingham : :Referring: BORA HOLLEY : + + Interpretation Summary The left ventricle is normal in size and wall thickness. The ejection fraction is estimated to be 65-70%. The right ventricle is normal in size and function. No significant valvular pathology seen. There is mild luminal irregularity and echogenicity in the abdominal aorta, suggestive of aortic atherosclerotic disease. Mild atherosclerotic plaque(s) in the aortic arch. Procedure: A two-dimensional transthoracic echocardiogram with color flow and Doppler was performed. The study quality was technically adequate. There is no prior echocardiogram noted for this patient. The patient was in sinus rhythm with heart rates between 69-81 bpm during the exam. The patient had occasional PACs during the exam. The patient had occasional PVCs during the exam. Left Ventricle: The left ventricle is normal in size and wall thickness. There is no thrombus. The ejection fraction is estimated to be 65-70%. There are no focal wall motion abnormalities. Diastolic parameters suggest a relaxation abnormality of the left ventricle, consistent with probable normal filling pressures. Right Ventricle: The right ventricle is normal in size and function. Atria: The left atrium is mildly dilated. Right atrial size is normal. There is no Doppler evidence for an interatrial shunt. Mitral Valve: The mitral valve leaflets are slightly calcified. There is no mitral regurgitation noted. Aortic Valve: The aortic valve is trileaflet. The aortic valve opens well. There is no aortic valve stenosis. No aortic regurgitation is present. Tricuspid Valve: The tricuspid valve is normal in structure and function. There is trace tricuspid regurgitation. Pulmonary artery pressures cannot be estimated because of the lack of a measurable TR jet velocity but the IVC suggests a CVP of around 3 mmHg. Pulmonic Valve: The pulmonic valve is not well seen, but is grossly normal. There is no pulmonic valvular regurgitation. Great Vessels: The aortic root is normal size. The dimensions of the ascending aorta are normal. There is mild luminal irregularity and echogenicity in the abdominal aorta, suggestive of aortic atherosclerotic disease. Mild atherosclerotic plaque(s) in the aortic arch. The IVC is of normal diameter and collapses greater than 50% with a sniff. This suggests a low right atrial pressure of 3 mm Hg. Pericardium/ Pleura There is no pericardial effusion. There is no pleural effusion. MMode/2D Measurements & Calculations LVIDd: 4.7 cm LVOT diam: 2.0 cm LVIDs: 3.0 cm Ao root diam: 3.0 cm FS: 35.3 % asc Aorta Diam: 3.3 cm EPSS: 0.57 cm Ao Arch Diam (Prox Trans): 2.6 cm IVSd: 0.76 cm LVPWd: 0.79 cm LV palomares. diameter/BSA (cm/m^2): 2.6 LV sys. diameter/BSA (cm/m^2): 1.7 LA A2 area: 20.4 cm2 RA long axis: 4.6 cm LA A4 area: 20.6 cm2 RA area: 15.0 cm2 LA length (vol): 5.1 cm RA vol: 41.8 ml LA vol: 69.6 ml RA : 22.8 ml/m2 LA vol index: 38.0 ml/m2 IVC diam: 1.6 cm RVD1 (basal): 3.4 cm TAPSE: 2.3 cm Doppler Measurements & Calculations Ao V2 max: 142.3 cm/sec LVOT Max Brandt: 101.7 cm/sec Ao V2 mean: 89.9 cm/sec LV V1 max P.1 mmHg Ao max P.1 mmHg LV V1 VTI: 17.9 cm Ao mean P.8 mmHg SONYA(I,D): 2.1 cm2 Ao V2 VTI: 26.9 cm SONYA(V,D): 2.3 cm2 sev ratio: 0.66 SONYA indexed to BSA (cm^2/m^2): 1.2 MV E max brandt: 54.0 cm/sec PA V2 max: 71.0 cm/sec MV A max brandt: 57.2 cm/sec PA V2 mean: 48.1 cm/sec MV E/A: 0.95 PA mean P.1 mmHg Med Peak E' Brandt: 5.3 cm/sec PA pr(Accel): 22.5 mmHg E/E' med: 10.2 Lat Peak E' Brandt: 10.0 cm/sec E/E' lat: 5.4 E/e' average: 7.8 MV dec time: 0.20 sec SV([facility]): 57.8 ml Reading Physician:05:57 PM
--- NOTE | 2019-12-21 | DI.NM.S_ITS ---
PROCEDURE: NM EXERCISE TREADMILL NON NUC COMPARISON: None. INDICATIONS: Palpitations FINDINGS: Patient 9 minutes and 1 second reachign 10.1 METs and DEBORAH -37%. 106% of maximum predicted heart rate reached. Appropriate BP response to exercise. Upsloping ST depressions in the inferior and anterolateral leads. No angina during the study. IMPRESSION: Low risk, normal treadmill stress test No ECG evidence of ischemia. No angina during the study. Target heart rate reached. Appropriate BP response to exercise. Very good exercise tolerance (10.1 METs, DEBORAH -37%). No prior stress test available for comparison. Dictated by: Dee Lema MD on 12/21/2019 at 17:40 Approved by: Dee Lema MD on 12/21/2019 at 17:42
== END ==
PROVIDERS: PCP Family Medicine; Referring Provider Family Medicine; Visit Provider Internal Medicine Cardiovascular Disease
DX: R00.2 Palpitations (principal); I70.0 Atherosclerosis of aorta; E83.110 Hereditary hemochromatosis; Z86.79 Personal history of other diseases of the circulatory system
CPT/HCPCS: 93017; 93306

== ENCOUNTER → 2020-01-14 09:37 | Outpatient (CLI) | payer BC, SELFPAY ==
[2020-01-14 11:25] LABS: COVID19 -Nasal RAPID Negative (Negative)
== END ==
PROVIDERS: PCP Family Medicine; Visit Provider Nurse Practitioner
DX: Z11.59 Encounter for screening for other viral diseases (principal)
CPT/HCPCS: 87635

== ENCOUNTER 2020-01-16 08:29 | Day surgery (SDC) | payer BC, SELFPAY ==
[2020-01-16] VITALS (12 sets, daily range): BP systolic 118–163; BP diastolic 61–95; PULSE 85–110; RESP 10–17; TEMP 36.1–36.8; O2SAT 94–98; BMI 31.8
--- NOTE | 2020-01-16 | PATH_ITS ---
[facility] Accession Number: [id number] . 01 Material submitted: . PART A: ovary - BILATERAL OVARIES AND FALLOPIAN TUBES, RIGHT PARA OVARIAN CYST PART B: endometrium - ENDOMETRIAL CURETTAGE . 01 Clinical history: . SDC . 02 Diagnosis: A. Bilateral Ovaries and Fallopian Tubes, Right Paraovarian Cyst, Bilateral Salpingo-oophorectomy: Paratubal cysts. Bilateral ovaries and fallopian tubes with no evidence of neoplasm. . B. Endometrium, Curettage: Inactive/noncycling endometrium with no evidence of neoplasia or hyperplasia. Additional levels were examined. [facility] 01/20/2020 1626 Local . 02 Electronically signed: . Ana Delgadillo MD, Pathologist NPI- [id number] . 01 Gross description: . A. Received in formalin, labeled bilateral ovaries and fallopian tubes, right paraovarian cyst, and consists of two ovaries measuring 2.2 x 1.2 x 1.0 cm and 2.6 x 1.2 x 1.0 cm. The external surface is claros-pink and cerebriform. Sectioning reveals a claros-pink ovarian stroma with corpora albicantia. The attached fallopian tubes measure 4.5 cm in length by 0.8 cm in diameter and 6.2 cm in length by 0.6 cm in diameter. The serosa is pink-purple and smooth with multiple paratubal cysts ranging from 0.1 to 1.5 cm. Sectioning reveals a claros mucosa and a stellate lumen measuring 0.2 cm in diameter. Shipping And Receiving sections are submitted. . A1-A2 - corporate sales representative ovary, fallopian tube (margin, en face, inked black) and bisected fimbria. A3-A4 - other ovary and fallopian tube (margin en face, inked black), central cross-sections and bisected fimbria. A5-A6 - remainder of one ovary. A7 - remainder of possible second ovary. (EA:[id number]) . B. Received in formalin, labeled endometrial curettage and consists of multiple claros-pink fragments of soft tissue admixed with mucus and clotted blood measuring 2.0 x 1.0 x 0.2 cm in aggregate. The specimen is filtered and entirely submitted in cassette B1. (EA:[id number]) /MRV 01/19/2020 1023 Local . 02 Microscopic: . A. Immunohistochemical stains and deeper levels were performed to characterize an area of interest. All control stains showed appropriate reactivity. . Results: ANDREW: Positive. REGINALD: Focally positive. Vimentin: Positive. CD10: Negative in the stromal cells. . Interpretation: The immunophenotype of the glandular structures is compatible with benign ovarian structures: rete ovarii. The absence of CD10 also mitigates against an interpretation of endometriosis. . * This test was developed and its performance characteristics determined by [facility]. It has not been cleared or approved by the U.S. Food and Drug Administration. The FDA has determined that such clearance or approval is not necessary. This test is used for clinical purposes. It should not be regarded as investigational or for research. . 02 Pathologist provided ICD-10: R10.2, R19.07 . 02 CPT . 113298, 289390, [id number], [id number] Performed at: 01 [facility] [address] [address], [place], [place] [id number] MD Pierre Garcia MD Phone: [phone] Performed at: 02 [facility] [id number] [place] [id number] MD Ana Delgadillo MD Phone: [phone]
[2020-01-16] MEDS: LACTATED RINGERS 1,000 ML 42 ML IV ×2 (09:14→11:04)
--- NOTE | 2020-01-16 10:08 | PM.HP.1 ---
History of Present Illness History of Present Illness Date Patient Seen: 01/16/20 Time Patient Seen: 10:09 Chief complaint: SDC Narrative: Patient is a 64-year-old 2 para 2 presents for a laparoscopic bilateral salpingo-oophorectomy secondary to an adnexal mass, and a D&C hysteroscopy due to postmenopausal bleeding. Patient History Medical History (Updated 01/16/20 @ 08:48 by Patricio Turcios RN) Abdominal distension Arthritis Cardiac arrhythmia (~1994) Carpal tunnel syndrome (~2017) Cervical motion tenderness Chicken pox (~1964) Chronic pain of right thumb Chronic thumb pain, bilateral Constipation Dermatitis Edema Family history of hemochromatosis Frequent UTI (~1989) GERD (gastroesophageal reflux disease) Incontinence Intermittent palpitations Kidney stones (~1985) Lumbar region somatic dysfunction Measles (~1964) Mumps (~1964) Pelvic somatic dysfunction Post-menopausal bleeding Sacral region somatic dysfunction Segmental and somatic dysfunction of rib cage Thyroid nodule (~2018) Upper extremity somatic dysfunction Urinary bladder incontinence UTI (urinary tract infection) Wears glasses Surgical History (Updated 08/17/19 @ 18:14 by Vivian Stephens) Anesthesia History of section History of partial thyroidectomy (~03/18/18) Family & Social History Family History (Updated 08/17/19 @ 18:19 by Vivian Stephens) Father Cancer Diabetes mellitus Hemochromatosis Alcoholism Mother Cancer Diabetes mellitus Hypertension Brother COPD (chronic obstructive pulmonary disease) Diabetes mellitus Hypertension Alcoholism Sister Hemochromatosis Grandfather Hepatitis Grandmother History of heart disease Grandfather Cancer Social History: household members spouse Tobacco & Substance use: Smoking Status Never smoker alcohol intake current alcohol intake frequency a few times a week Substance Use Type does not use Meds Home Medications and Allergies Home Medications Medication Instructions Recorded Confirmed Type estradiol 0.2 gram VAG DAILY #42.5 gram 12/12/19 12/28/19 Rx estradiol 1 vaginalrin VAG [id number] #1 each 12/28/19 01/16/20 Rx aspirin [Low-Dose Aspirin] 81 mg PO DAILY 01/16/20 01/16/20 History cholecalciferol (vitamin D3) 125 mcg PO DAILY 01/16/20 01/16/20 History [Vitamin D3] Allergies Allergy/AdvReac Type Severity Reaction Status Date / Time bee venom protein (honey bee) Allergy Severe Anaphylaxis Verified 01/16/20 08:51 latex Allergy Severe Redness of Verified 01/16/20 08:43 Skin lidocaine Allergy Severe tachycardia, Verified 01/16/20 08:42 anaphylaxis mold Allergy Severe Swelling Verified 01/16/20 08:43 of Lip/Tongue/Throat Sulfa (Sulfonamide Allergy Severe inflammation Verified 01/16/20 08:42 Antibiotics) of skin, anaphylaxis Exam Vital Signs (past 8 hours): - 01/16/20 08:56 Temperature 98.3 F Pulse Rate 85 Respiratory Rate 17 Blood Pressure 125/79 Pulse Oximetry 97 Oxygen Delivery Method Room Air Narrative Exam Narrative: HEENT: No thyromegaly, no anterior cervical or supraclavicular lymphadenopathy. Lungs:Clear to auscultation bilaterally, no wheezes. Cardiovascular: Regular rate and rhythm, no murmurs, rubs, or gallops. Abdomen: Well-healed Pfannenstiel scars. No hepatosplenomegaly. No masses palpable. External genitalia: Atrophic labia minora. Normal labia majora. Normal urethral meatus. Normal Bartholin's and [place]'s glands. Vagina: Atrophic Cervix: Atrophic Bimanual exam: 7 Week size anteverted uterus. Mobile.] No adnexal tenderness. Rectal: No masses. Assessment & Plan Assessment & Plan narrative: Assessment: 64-year-old 2 para 2 with an adnexal mass, and postmenopausal bleeding Plan: Laparoscopic bilateral salpingo-oophorectomy and D&C hysteroscopy The risks, benefits, and alternatives to the procedure were explained to the patient. The risks including bleeding, infection, injury to the bowel, bladder, ureters, or uterine perforation. She understands these risks and agrees to proceed. A full par Q was held and consent form was signed. COVID-19 COVID-19 status: Negative Result date/Date tested (Pos, Neg/Pending): 01/14/20 Time Spent With Patient Time with patient: 15-24 minutes
--- NOTE | 2020-01-16 10:12 | PM.PREOP ---
Pre-operative Note COVID-19 COVID-19 status: Negative Result date/Date tested (Pos, Neg/Pending): 01/14/20 Interval Note History & Physical reviewed/Exam performed by Physician: Yes Changes to H&P: No H&P completed within 30 days and has changed as indicated here:: 01/16/20
--- NOTE | 2020-01-16 10:52 | SUR.OPER ---
Lithotomy on padded OR bed, head on pillow, arms tucked at side with bilateral gel pads. Legs secured in padded yellow fins stirrups.
[2020-01-16] MEDS: BUPIVACAINE 0.5% W/ EPI (PF) 30 ML VIAL INJ (11:03)
[2020-01-16] MEDS: OXYCODONE/ACETAMINOPHEN 5/325 TABLET 1 TAB PO ×2 (12:00→12:43)
[2020-01-16] MEDS: ONDANSETRON 4 MG/2 ML INJ IV (12:03)
--- NOTE | 2020-01-16 12:11 | SUR.PHASEI ---
Pt c/o headache. Pt is a coffee drinker. Pt took a few sips of coffee and opted for cranberry juice. Oxycodone given for headache, zofran given for nausea. IVF rate increased. Lucero at bedise, medicated pt with fentanyl 50mcg IVP - see anesthesia record. Pt currently nibbling on saltines.
--- NOTE | 2020-01-16 12:48 | SUR.PHASEII ---
pt arrived to phase II via stretcher. pt sitting up in bed with eyes open, responds to voice when spoken to. Pita-pad observed to be c/d/i. 4 dressing sites also observed to be c/d/i. pt denies any nausea at this time. pt rating pain 4/10 in pelvic area. Bed in lowest position and call light given to pt.
--- NOTE | 2020-01-16 17:47 | P.OP_ITS ---
Operative Date/Time/Diagnoses Date of procedure: 01/16/20 Time of procedure: 11:40 Pre-op diagnosis: Ovarian cyst Postmenopausal bleeding Post-op diagnosis: same Procedure & Clinicians Procedure: Procedures Operation Date: 01/16/20 09:45 Actual Procedures Side Surgeon p Laparoscopic Salpingo-oophorectomy, with removal right para-ovarian cyst Bilateral Nery Holloway MD s Hysteroscopy D&C Nery Holloway MD Indications: Right ovarian cyst Postmenopausal bleeding Surgeon: Nery Holloway Anesthesia Type: General Operative Notes Findings: Normal ovaries bilaterally. Normal tubes bilaterally Para ovarian cysts approximately 3 of them Both fallopian tube ostia observed No polyp or fibroid in the uterus Closure Type: primary Specimen(s): endometrial curettings, left tube & ovary, right tube & ovary and other (Right para ovarian cyst) Estimated blood loss (mL): 5 Blood products transfused: none Procedure in detail: After informed consent was obtained, the patient was taken to the operating room where she was placed in the dorsal supine position. After adequate general endotracheal anesthesia was achieved, she was placed in the dorsal lithotomy position, and prepped and draped in the usual sterile fashion. A time-out was performed. A bivalve speculum was placed into the vagina and the anterior lip of the cervix grasped with a single-tooth tenaculum. The cervical os was sequentially dilated until the Zumi uterine manipulator could pass easily into the endometrial cavity. The single-tooth tenaculum was removed from the anterior lip of the cervix. The bivalve speculum was removed from the vagina. Attention was then turned to the abdomen where 6 cc of 0.5% Marcaine with epinephrine were injected in the umbilical fold. A 5 mm incision was made. The Veress needle was placed into the peritoneal cavity, and its placement confirmed by aspiration and drop test. The abdominal cavity was insufflated with 3.6 L of CO2. The Veress needle was removed, and a 5 mm trocar was placed without difficulty. Two incisions were made 4 cm lateral to the midline at the level of the umbilicus after 6 cc of 0.5% Marcaine with epinephrine were injected. 5 mm trocars were placed under direct visualization. The tubes and ovaries were identified and were found to be normal. On the right side there were paraovarian cyst approximately 3-4 of them. No cyst on the left. The right tube and ovary as well as the para ovarian cysts were grasped with an atraumatic grasper. Using the PlasmaKinetic was settings of 40 w, the infundibulopelvic ligament on the right side was cauterized and cut. The mesosalpinx was cauter ized and cut all the way down to the level of the cornua. The tube was amputated at the cornua with cautery and cut. The utero-ovarian ligaments were cauterized and cut. Hemostasis was achieved. All of this was repeated on the patient's left side. The tubes and ovaries were placed into the pelvis. Above the pubic symphysis, through previous Pfannenstiel incision, 6 cc of 0.5% Marcaine with epinephrine were injected. A 1 cm incision was made. A 10 mm trocar was placed under direct visualization. The small endobag was placed through the suprapubic trocar and opened. The tubes and ovaries as well as the right para ovarian cysts, were placed into the bag. The bag was closed and the suprapubic trocar was removed. The bag was removed through the suprapubic incision. The pelvis was examined and there was no bleeding noted. The instruments were removed from the abdomen. The CO2 was allowed to escape. The trocars were removed. The suprapubic incision was closed on the fascia with 0 Vicryl. The incision was irrigated with warm normal saline. All of the incisions were closed in a subcuticular fashion using 4-0 Biosyn. Steri-Strips, and Allevyn dressings were placed. Attention was then turned to the vagina where the Zumi uterine manipulator was removed from the uterus. A bivalve speculum was placed into the vagina. A single-tooth tenaculum was placed on the anterior lip of the cervix. The cervix was dilated to the # 8 Hegar dilator. The hysteroscope passed easily into the endometrial cavity. Both fallopian tube ostia were observed. There were no polyps or fibroids visualized. The hysteroscope was removed. Sharp curettage was performed yielding a small amount of endometrial curettings. The instruments were removed from the uterus. The single-tooth tenaculum was removed from the anterior lip of the cervix. The bivalve speculum was removed from the vagina. Sponge, lap, and instrument counts were correct x2. The patient tolerated the procedure well, and was taken to PACU in stable condition. Complications: none Post-operative Condition: stable Disposition: PACU Plan for aftercare: Home after recovery
== END 2020-01-16 14:20 | disposition home or self-care (01) ==
PROVIDERS: PCP Family Medicine; Referring Provider Family Medicine; Visit Provider Obstetrics & Gynecology
PROC: 0UT24ZZ Resection of Bilateral Ovaries, Percutaneous Endoscopic Approach (ICD-10-PCS; CPT 58661; principal; 2020-01-16 09:45)
PROC: 0UDB8ZZ Extraction of Endometrium, Via Natural or Artificial Opening Endoscopic (ICD-10-PCS; CPT 58558; 2020-01-16 09:45)
DX: N83.291 Other ovarian cyst, right side (principal); N95.0 Postmenopausal bleeding; I49.9 Cardiac arrhythmia, unspecified
CPT/HCPCS: 58661; 58558; J0330; J1100; J1885; J2405; J2704; J2765; J3010

== ENCOUNTER → 2020-02-02 17:48 | Outpatient (CLI) | payer BC, SELFPAY ==
--- NOTE | 2020-02-02 17:48 | DI.MG.S_ITS ---
BILATERAL DIGITAL SCREENING MAMMOGRAM 3D/2D WITH CAD: 02/02/2020 CLINICAL: Routine screening. Family history of breast cancer. Comparison is made to exams dated: 12/20/2015 mammogram, 12/22/2016 mammogram, and 02/03/2018 mammogram - outside location. The tissue of both breasts is heterogeneously dense. This may lower the sensitivity of mammography. Current study was also evaluated with a Computer Aided Detection (CAD) system. There are diffuse calcifications in both breasts. No significant masses, calcifications, or other findings are seen in either breast. There has been no significant interval change. IMPRESSION: BENIGN There is no mammographic evidence of malignancy. A 1 year screening mammogram is recommended. This exam was interpreted at Station ID: [id number]. NOTE: For mammograms, a report in lay terms will be sent to the patient. Approximately 15% of breast malignancies will not be visualized mammographically. In the management of a palpable breast mass, a negative mammogram must not discourage biopsy of a clinically suspicious lesion. Electronically Signed By: Mateus florez/:02/03/2020 07:29:12 letter sent: Normal Exam ACR BI-RADS Category 2: Benign Finding(s) 3342F
== END ==
PROVIDERS: PCP Family Medicine; Referring Provider Obstetrics & Gynecology; Visit Provider Obstetrics & Gynecology
DX: Z12.31 Encounter for screening mammogram for malignant neoplasm of breast (principal); Z80.3 Family history of malignant neoplasm of breast
CPT/HCPCS: 77063; 77067

== ENCOUNTER → 2020-03-13 15:51 | Outpatient (CLI) | payer BC, SELFPAY ==
[2020-03-13] MEDS: COVID-19 VACC #1, MRNA(MOD) 100 MCG/0.5 ML VIAL IM (15:55)
== END ==
PROVIDERS: PCP Family Medicine; Visit Provider Internal Medicine
DX: Z23 Encounter for immunization (principal)
CPT/HCPCS: 0011A; 91301

== ENCOUNTER → 2020-04-10 15:54 | Outpatient (CLI) | payer BC, SELFPAY ==
[2020-04-10] MEDS: COVID-19 VACC #2, MRNA(MOD) 100 MCG/0.5 ML VIAL IM (15:56)
== END ==
PROVIDERS: PCP Family Medicine; Visit Provider Internal Medicine
DX: Z23 Encounter for immunization (principal)
CPT/HCPCS: 0012A; 91301

== ENCOUNTER → 2021-02-04 16:55 | Outpatient (CLI) | payer BC, SELFPAY ==
--- NOTE | 2021-02-04 | DI.MG.S_ITS ---
BILATERAL DIGITAL SCREENING MAMMOGRAM 3D/2D WITH CAD: 02/04/2021 CLINICAL: Routine screening. Family history of breast cancer. Comparison is made to exams dated: 02/02/2020 mammogram - [facility], 02/03/2018 mammogram, and 06/22/2017 mammogram - outside location. The tissue of both breasts is heterogeneously dense. This may lower the sensitivity of mammography. Current study was also evaluated with a Computer Aided Detection (CAD) system. There are benign diffuse calcifications in both breasts. No significant masses, calcifications, or other findings are seen in either breast. There has been no significant interval change. IMPRESSION: BENIGN There is no mammographic evidence of malignancy. A 1 year screening mammogram is recommended. This exam was interpreted at Station ID: [id number]. NOTE: For mammograms, a report in lay terms will be sent to the patient. Approximately 15% of breast malignancies will not be visualized mammographically. In the management of a palpable breast mass, a negative mammogram must not discourage biopsy of a clinically suspicious lesion. Electronically Signed By: Pierre quinn/jonathan:02/05/2021 09:07:58 letter sent: Normal Exam ACR BI-RADS Category 2: Benign Finding(s) 3342F
[2021-02-04 18:04] LABS: Add Manual Diff / Slide Review NO; Basophils Absolute Auto 100 /uL (0-100); Basophils Percent Auto 0.8 % (0-2); Eosinophils Absolute Auto 200 /uL (0-450); Hematocrit 40.3 % (36-46); Hemoglobin 13.7 g/dL (12.0-16.0); Lymphocytes Absolute Auto 2800 /uL (1100-4500); Lymphocytes Percent Auto 35.9 % (25-40); Mean Corpuscular HGB Conc 33.9 % (30-36); Mean Corpuscular Hemoglobin 30.3 PG (26-34); Mean Corpuscular Volume 89.4 fL (80-100); Monocytes Absolute Auto 600 /uL (0-900); Neutrophils Absolute Auto 4100 /uL (1500-7000); Neutrophils Percent Auto 53.3 % (50-75); Platelet Count 281 X10^3/uL (150-400); Red Blood Cell Count 4.51 X10^6/uL (4.0-5.2); White Blood Cell Count 7.8 X10^3/uL (4.5-11.0)
[2021-02-04 19:07] LABS: Ferritin 39 ng/mL (11-264)
== END ==
PROVIDERS: Internal Medicine Medical Oncology; PCP Family Medicine; Referring Provider Family Medicine; Visit Provider Family Medicine
DX: Z12.31 Encounter for screening mammogram for malignant neoplasm of breast (principal); Z80.3 Family history of malignant neoplasm of breast; Z83.49 Family history of other endocrine, nutritional and metabolic diseases
CPT/HCPCS: 36415; 77063; 77067; 82728; 85025

== ENCOUNTER → 2021-10-28 08:46 | Outpatient (CLI) | payer MEDICARE, SELFPAY ==
--- NOTE | 2021-10-28 08:48 | DI.US.S_ITS ---
PROCEDURE: US PELVIC COMPLETE INDICATIONS: pelvic pain TECHNIQUE: Real-time scanning was performed of the pelvic organs, with image documentation. Additional endovaginal scanning was necessary due to incomplete visualization of the adnexal and endometrial structures by transabdominal scanning. COMPARISON: [facility], , PELVIC COMPLETE, 12/07/2019, 15:13. [facility], , PELVIC COMPLETE, 09/20/2019, 10:15. FINDINGS: Uterus: Uterus is anteverted and normal in size at 5.6 x 3.5 x 4.3 cm. The myometrium is homogeneous. The endometrium measures up to 5 mm in diameter. Ovaries: The ovaries are surgically absent. Other: No pathologic free abdominal or pelvic fluid. IMPRESSION: 1. Endometrium is within normal limits in a postmenopausal patient without bleeding. In a postmenopausal patient with abnormal uterine bleeding, the endometrium is considered abnormally thickened and endometrial biopsy is recommended to exclude neoplasm or hypertrophy. We strive to produce accurate, complete, and clear reports of imaging services. To assist us in improving patient care, this report was composed using standard report templates and voice recognition software. Therefore, it may contain abnormal punctuation, insertions and/or omissions. Occasional wrong-word or sound-alike substitutions may occur. Though we review the report and make efforts to correct it, we do recommend that the report be read carefully in proper context to recognize any text inaccuracies. Dictated by: Marily Bell M.D. on 10/28/2021 at 10:50 Approved by: Marily Bell M.D. on 10/28/2021 at 10:53
[2021-10-28 11:11] LABS: Appearance Urine UA CLEAR; Bilirubin Urine UA NEGATIVE (NEGATIVE); Color Urine UA YELLOW; Glucose Urine UA NEGATIVE (Negative); Ketones Urine UA NEGATIVE (NEGATIVE); Leukocyte Esterase Urine UA 1+ (NEGATIVE); Nitrite Urine UA NEGATIVE (Negative); Occult Blood Urine UA NEGATIVE (Negative); Protein Urine UA NEGATIVE (Negative); Specific Gravity Urine UA <=1.005 (1.000-1.035); Urobilinogen Urine UA 0.2 E.U./dL (0.2)
[2021-10-28 11:14] LABS: pH Urine UA 6.5 (4.5-8.0)
[2021-10-28 11:41] LABS: Bacteria Urine None Seen; Culture Indicated Urine Specimen Cultured; RBC Urine None Seen (0-5/HPF); Squamous Epithelial Cell Urine 0-1 /HPF (0-5/HPF); WBC Urine None Seen (0-5/HPF)
== END ==
PROVIDERS: PCP Family Medicine; Referring Provider Obstetrics & Gynecology; Visit Provider Obstetrics & Gynecology
DX: R10.2 Pelvic and perineal pain (principal); R30.0 Dysuria
CPT/HCPCS: 76830; 76856; 81001; 87086

== ENCOUNTER → 2022-03-05 11:30 | Outpatient (CLI) | payer MEDICARE, SELFPAY ==
--- NOTE | 2022-03-05 11:31 | DI.RAD.S_ITS ---
PROCEDURE: XR HAND RT MIN 3V INDICATIONS: pain TECHNIQUE: Three views of the hand(s) acquired. COMPARISON: None. FINDINGS: Bones: No fractures or dislocations. Mildly decreased mineralization. Moderate marginal osteophytes at the 3rd MCP joint. Hypertrophic osteophytosis and subcortical cystic change at the 1st CMC joint. There is diffusely near complete joint space loss at the distal interphalangeal joints two through five. Complete joint space loss at the 5th PIP with irregularity and destruction of articular surfaces. Asymmetric joint space loss at the 3rd and 4th PIP joints and mild spurring. Carpal bones are normally aligned. No suspicious bony lesions. Soft tissues: No suspicious soft tissue calcifications. IMPRESSION: 1. Arthritic changes, most extensive in the digits, particularly 5th. There may be an inflammatory component although distribution is suggestive of osteoarthritis. Dictated by: Courtney Shepard M.D. on 03/05/2022 at 23:34 Approved by: Courtney Shepard M.D. on 03/05/2022 at 23:37
--- NOTE | 2022-03-05 11:31 | DI.RAD.S_ITS ---
PROCEDURE: XR HAND LT MIN 3V INDICATIONS: pain TECHNIQUE: Three views of the hand(s) acquired. COMPARISON: None. FINDINGS: Bones: No fractures or dislocations. Decreased mineralization. Complete joint space loss at the 2nd through 5th distal interphalangeal joints. Moderate asymmetric joint space loss, slight sclerosis and spurring at the 3rd PIP joint. There are juxta-articular cortical erosions seen at the 3rd PIP, DIP, 2nd DIP, and probably 5th PIP. Carpal bones are normally aligned. No suspicious bony lesions. Soft tissues: No suspicious soft tissue calcifications. IMPRESSION: 1. Osteoarthritic changes involving the distal digits with periarticular erosions suggesting an inflammatory component. Dictated by: Courtney Shepard M.D. on 03/05/2022 at 23:37 Approved by: Courtney Shepard M.D. on 03/05/2022 at 23:39
== END ==
PROVIDERS: PCP Family Medicine; Referring Provider Family Medicine; Visit Provider Family Medicine
DX: M79.641 Pain in right hand (principal); M79.642 Pain in left hand
CPT/HCPCS: 73130

== ENCOUNTER → 2022-03-12 09:09 | Outpatient (CLI) | payer MEDICARE, SELFPAY ==
[2022-03-12 10:34] LABS: Erythrocyte Sedimentation Rate 9 MM/HR (0-20)
[2022-03-12 10:50] LABS: C-Reactive Protein Quant < 0.5 mg/dL (<1.0); Cholesterol 185 mg/dL (140-199); HDL Cholesterol 47 mg/dL (40-60); LDL Cholesterol Calculated 118 mg/dL (<100); Rheumatoid Factor < 8.6 IU/mL (<12.0); Triglycerides 101 mg/dL (35-150)
[2022-03-16 17:52] LABS: CCP Antibodies IgG/IgA <1 units (0-19)
== END ==
PROVIDERS: PCP Family Medicine; Referring Provider Family Medicine; Visit Provider Family Medicine
DX: M79.641 Pain in right hand (principal); M79.642 Pain in left hand; Z13.220 Encounter for screening for lipoid disorders
CPT/HCPCS: 80061; 85651; 86140; 86200; 86430

== ENCOUNTER → 2022-03-20 10:43 | Outpatient (CLI) | payer MEDICARE, SELFPAY ==
--- NOTE | 2022-03-20 | DI.MG.S_ITS ---
BILATERAL DIGITAL SCREENING MAMMOGRAM 3D/2D WITH CAD: 03/20/2022 CLINICAL: Routine screening. Family history of breast cancer. Comparison is made to exams dated: 02/04/2021 mammogram, 02/02/2020 mammogram - [facility], and 02/03/2018 mammogram - outside location. Both breasts are heterogeneously dense, which may obscure small masses (category c / 51-75% glandular tissue). Current study was also evaluated with a Computer Aided Detection (CAD) system. There is a possible equal density focal asymmetry in the left breast at 2 o'clock anterior depth. This is more prominent and increased in size. No other significant masses, calcifications, or other findings are seen in either breast. IMPRESSION: INCOMPLETE: NEEDS ADDITIONAL IMAGING EVALUATION The possible equal density focal asymmetry in the left breast is indeterminate. Additional views with possible ultrasound are recommended. Based on Tyrer-Cuzick model (a risk assessment model), the patient's lifetime risk is 23.9% and her 10 year risk is 12.1%. If a patient has an elevated risk, a more comprehensive evaluation should be considered and/or a referral to a genetic counselor. The [employer], [employer], and NCCN Guidelines advise the consideration of Breast MRI as an adjunct to screening mammography in patients whose Lifetime risk to develop breast cancer is 20% or higher. This exam was interpreted at Station ID: [id number]. NOTE: For mammograms, a report in lay terms will be sent to the patient. Approximately 15% of breast malignancies will not be visualized mammographically. In the management of a palpable breast mass, a negative mammogram must not discourage biopsy of a clinically suspicious lesion. Electronically Signed By: Mateus gordon/jonathan:03/20/2022 17:58:26 letter sent: Additional Imaging Needed ACR BI-RADS Category 0: Incomplete 3340F
== END ==
PROVIDERS: PCP Family Medicine; Referring Provider Family Medicine; Visit Provider Family Medicine
DX: M85.851 Other specified disorders of bone density and structure, right thigh (principal); Z12.31 Encounter for screening mammogram for malignant neoplasm of breast; Z78.0 Asymptomatic menopausal state; Z13.820 Encounter for screening for osteoporosis; Z82.62 Family history of osteoporosis
CPT/HCPCS: 77063; 77067; 77080

== ENCOUNTER → 2022-04-15 09:30 | Outpatient (CLI) | payer MEDICARE, SELFPAY ==
--- NOTE | 2022-04-15 | DI.US.S_ITS ---
ULTRASOUND OF LEFT BREAST: 04/15/2022 CLINICAL: Patient returns today to evaluate a focal asymmetry in the left breast. Comparison is made to exams dated: 04/15/2022 mammogram, 03/20/2022 mammogram, 02/04/2021 mammogram, and 02/02/2020 mammogram - [facility]. Color flow and real-time ultrasound of the left breast were performed. Gordon scale images of the real-time examination were reviewed. There is no ultrasound correlate for the asymmetry in the left breast at 2 o'clock middle depth. IMPRESSION: PROBABLY BENIGN The left breast asymmetry has no sonographic correlate and is less prominent with spot compression. This is probably benign and a follow-up mammogram in 6 months is recommended to demonstrate stability. This exam was interpreted at Station ID: [id number]. Electronically Signed By: Vadim Parsons M.D. jr/:04/15/2022 12:41:26 letter sent: Followup Recommended Ultrasound BI-RADS: 3 Probably benign
--- NOTE | 2022-04-15 | DI.MG.S_ITS ---
UNILATERAL LEFT DIGITAL DIAGNOSTIC MAMMOGRAM 3D/2D WITH ADDITIONAL VIEWS: 04/15/2022 CLINICAL: Additional evaluation requested from prior study. Comparison is made to exams dated: 03/20/2022 mammogram, 02/04/2021 mammogram, and 02/02/2020 mammogram - [facility]. The left breast is heterogeneously dense, which may obscure small masses (category c / 51-75% glandular tissue). There is a possible equal density focal asymmetry in the left breast at 2 o'clock anterior depth. This is seen in additional views. This is less prominent. No other significant masses or calcifications are seen in the breast. IMPRESSION: INCOMPLETE: NEEDS ADDITIONAL IMAGING EVALUATION The possible equal density focal asymmetry in the left breast most likely is a cyst or fibroglandular tissue and is indeterminate. An ultrasound is recommended. Based on Tyrer-Cuzick model (a risk assessment model), the patient's lifetime risk is 23.9% and her 10 year risk is 12.1%. If a patient has an elevated risk, a more comprehensive evaluation should be considered and/or a referral to a genetic counselor. The [employer], [employer], and NCCN Guidelines advise the consideration of Breast MRI as an adjunct to screening mammography in patients whose Lifetime risk to develop breast cancer is 20% or higher. This exam was interpreted at Station ID: [id number]. NOTE: For mammograms, a report in lay terms will be sent to the patient. Approximately 15% of breast malignancies will not be visualized mammographically. In the management of a palpable breast mass, a negative mammogram must not discourage biopsy of a clinically suspicious lesion. Electronically Signed By: Vadim Parsons M.D., jr/jonathan:04/15/2022 12:40:09 ACR BI-RADS Category 0: Incomplete 3340F
== END ==
PROVIDERS: PCP Family Medicine; Referring Provider Family Medicine; Visit Provider Family Medicine
DX: R92.8 Other abnormal and inconclusive findings on diagnostic imaging of breast (principal); N64.89 Other specified disorders of breast
CPT/HCPCS: 76642; 77065; G0279

== ENCOUNTER → 2022-09-10 09:06 | Outpatient (CLI) | payer MEDICARE, SELFPAY ==
[2022-09-10 10:40] LABS: Cholesterol 203 mg/dL (140-199); HDL Cholesterol 49 mg/dL (40-60); LDL Cholesterol Calculated 128 mg/dL (<100); Triglycerides 130 mg/dL (35-150)
== END ==
PROVIDERS: PCP Family Medicine; Referring Provider Internal Medicine Cardiovascular Disease; Visit Provider Internal Medicine Cardiovascular Disease
DX: E78.6 Lipoprotein deficiency (principal)
CPT/HCPCS: 80061

== ENCOUNTER 2022-10-22 11:30 | Emergency (ER) | payer MEDICARE, SELFPAY ==
[2022-10-22] VITALS (9 sets, daily range): BP systolic 137–156; BP diastolic 84–107; PULSE 67–81; RESP 22; TEMP 36.7; O2SAT 95–100; BMI 26.9
[2022-10-22] MEDS: ONDANSETRON 4 MG/2 ML INJ IV (11:46)
[2022-10-22 11:47] LABS: Add Manual Diff / Slide Review NO; Basophils Absolute Auto 100 /uL (0-100); Basophils Percent Auto 0.9 % (0-2); Eosinophils Absolute Auto 300 /uL (0-450); Eosinophils Percent Auto 3.4 % (2-4); Hematocrit 41.3 % (36-46); Hemoglobin 13.7 g/dL (12.0-16.0); Lymphocytes Absolute Auto 4000 /uL (1100-4500); Lymphocytes Percent Auto 40.2 % (25-40); Mean Corpuscular HGB Conc 33.2 % (30-36); Mean Corpuscular Hemoglobin 29.7 PG (26-34); Mean Corpuscular Volume 89.3 fL (80-100); Monocytes Absolute Auto 1100 /uL (0-900); Monocytes Percent Auto 10.9 % (3-14); Neutrophils Absolute Auto 4400 /uL (1500-7000); Neutrophils Percent Auto 44.6 % (50-75); Platelet Count 281 X10^3/uL (150-400); Red Blood Cell Count 4.62 X10^6/uL (4.0-5.2); Red Cell Distribution Width 13.3 % (11.6-14.8); White Blood Cell Count 9.9 X10^3/uL (4.5-11.0)
[2022-10-22 11:58] LABS: Alanine Aminotransferase 29 IU/L (<35); Albumin 4.3 g/dL (3.5-5.0); Albumin Globulin Ratio 1.6 (1.0-2.8); Alkaline Phosphatase 67 U/L (38-126); Aspartate Aminotransferase 28 IU/L (14-36); BUN Creatinine Ratio 24.4 (6-22); Bilirubin Total 0.4 mg/dL (0.2-1.3); Blood Urea Nitrogen 20 mg/dL (7-17); Calcium 9.6 mg/dL (8.4-10.2); Carbon Dioxide 18 mmol/L (22-32); Chloride 109 mmol/L (98-107); Estimated Glomerular Filt Rate > 60 mL/min (>60); Globulin 2.7 g/dL (1.7-4.1); Glucose 134 mg/dL (80-110); HEMOLYSIS < 15 (0-50); Lipase 119 U/L (23-300); Potassium 3.7 mmol/L (3.4-5.1); Sodium 139 mmol/L (137-145)
--- NOTE | 2022-10-22 12:22 | DI.CT.S_ITS ---
PROCEDURE: CT ABDOMEN PELVIS W CON INDICATIONS: L SIDED ABDOMINAL PAIN TECHNIQUE: After the administration of oral and IV contrast, axial sections were acquired from the lung bases to the pubic symphysis. Coronal and sagittal reformats were performed. For radiation dose reduction, the following was used: automated exposure control, adjustment of mA and/or kV according to patient size. COMPARISON: None. FINDINGS: Image quality: Excellent. Lung bases: Unremarkable. Heart: No significant findings. ABDOMEN: Liver: Hepatic steatosis is present. The subcentimeter low-attenuation focus is present in the posterior right hepatic lobe. Gallbladder: Unremarkable. Biliary ducts: Unremarkable. Pancreas: Unremarkable. Spleen: Unremarkable. Adrenal Glands: Unremarkable. Kidneys and Ureters: Nonobstructing punctate left renal calcification in the lower pole. There is mild hydronephrosis and hydroureter. 2 mm proximal left ureteral calculus is present. Stomach and Bowel: Stomach, small bowel loops, and colon are unremarkable. Peritoneum: No abnormal intraperitoneal fluid. No free air. Ventral Wall: Fat containing ventral hernia. hernia. Abdominal Nodes: No retroperitoneal or mesenteric adenopathy by size criteria. Vessels: Aorta and inferior vena cava are normal in size. PELVIS: Pelvic Organs: Unremarkable. Bladder: Unremarkable. Pelvic Nodes: No enlarged lymph nodes. Miscellaneous: No inguinal hernias are seen. Bones: Unremarkable. IMPRESSION: Mild hydronephrosis and hydroureter secondary to 2 mm left approximate ureteral calculus. Subcentimeter low-attenuation focus within the liver too small to definitively characterize. This could represent a small cyst or hemangioma. Dictated by: Keshia Tabares M.D. on 10/22/2022 at 13:25 Approved by: Keshia Tabares M.D. on 10/22/2022 at 13:27
[2022-10-22] MEDS: SODIUM CHLORIDE 0.9% 1,000 ML 1000 ML IV (12:37)
[2022-10-22] MEDS: MORPHINE 4 MG/ML INJ IV (12:37)
--- NOTE | 2022-10-22 13:02 | ED_ITS ---
HPI - Abdominal Pain General Chief Complaint: Abdominal Pain Stated Complaint: abd pain Time Seen by Provider: 10/22/22 11:58 Source: patient Mode of arrival: Wheelchair History of Present Illness HPI narrative: 67-year-old female with history of psoriatic arthritis on Humira presents by private vehicle from home for left-sided flank pain. Patient states that she was cleaning up from breakfast when she felt sharp stabbing flank pain that radiated around to her stomach. It then caused her to vomit. She states that she has a history of kidney stones in the remote past but this feels different. No medications taken prior to arrival. Related Data Home Medications Medication Instructions Recorded Confirmed aspirin 81 mg tablet 81 mg PO DAILY 01/16/20 03/05/22 cholecalciferol (vitamin D3) 125 125 mcg PO DAILY 01/16/20 03/05/22 mcg (5,000 unit) tablet (Vitamin D3) calcium lactate 100 mg calcium 100 mg PO DAILY 06/06/20 03/05/22 tablet magnesium 200 mg tablet 200 mg PO PRN PRN Cramps 06/06/20 03/05/22 Previous Rx's Medication Instructions Recorded estradiol 2 mg (7.5 mcg/24 hour) 1 vag ring vaginal [id number] #1 ea 02/28/22 vaginal ring hydrocodone 5 mg-acetaminophen 325 1 tab PO Q6H PRN pain #14 tabs 10/22/22 mg tablet ondansetron 4 mg disintegrating 4 mg PO Q8H PRN nausea and 10/22/22 tablet vomiting #30 tabs tamsulosin 0.4 mg capsule (Flomax) 0.4 mg PO DAILY #30 caps 10/22/22 Allergies Allergy/AdvReac Type Severity Reaction Status Date / Time bee venom protein (honey bee) Allergy Severe Anaphylaxis Verified 10/22/22 11:43 latex Allergy Severe Redness of Verified 10/22/22 11:43 Skin lidocaine Allergy Severe tachycardia, Verified 10/22/22 11:43 anaphylaxis mold Allergy Severe Swelling Verified 10/22/22 11:43 of Lip/Tongue/Throat Sulfa (Sulfonamide Allergy Severe inflammation Verified 10/22/22 11:43 Antibiotics) of skin, anaphylaxis Review of Systems Review of Systems Narrative: CONSTITUTIONAL- Denies: fever, chills, fatigue HEENT- Denies: sore throat, nosebleed, vision changes RESPIRATORY- Denies: shortness of breath, cough, wheezing CARDIAC- Denies: chest pain, edema, orthopnea GI-reports: Nausea, vomiting Denies: abdominal pain, constipation, diarrhea -reports: Flank pain Denies: frequency, dysuria, hematuria MSK- Denies: extremity pain, extremity swelling, joint pain, joint swelling SKIN- Denies: rash, itching, burn, swelling NEUROLOGICAL- Denies: headache, numbness, weakness, dizziness PSYCHIATRIC- Denies: anxiety, depression, suicidal ideation, homicidal ideation Patient History Medical History (Updated 10/22/22 @ 13:33 by Xochilt Aguirre MD) Abdominal distension Arthritis Bilateral hand pain Cardiac arrhythmia (~1994) Carpal tunnel syndrome (~2017) Cervical motion tenderness Chicken pox (~1964) Chronic pain of right thumb Chronic thumb pain, bilateral Constipation Dermatitis Edema Family history of hemochromatosis Frequent UTI (~1989) GERD (gastroesophageal reflux disease) Incontinence Inflammatory arthritis Intermittent palpitations Kidney stones (~1985) Lumbar region somatic dysfunction Measles (~1964) Mumps (~1964) Pelvic somatic dysfunction Post-menopausal bleeding Sacral region somatic dysfunction Segmental and somatic dysfunction of rib cage Thyroid nodule (~2018) Upper extremity somatic dysfunction Urinary bladder incontinence UTI (urinary tract infection) Wears glasses Surgical History (Updated 09/16/22 @ 13:21 by Jose Angel Diggs MD) Anesthesia H/O bilateral oophorectomy (~12/2019) History of section History of hysteroscopy (~12/2019) History of partial thyroidectomy (~03/18/18) Hx of bilateral oophorectomy Family History (Updated 08/17/19 @ 18:19 by Vivian Stephens) Father Cancer Diabetes mellitus Hemochromatosis Alcoholism Mother Cancer Diabetes mellitus Hypertension Brother COPD (chronic obstructive pulmonary disease) Diabetes mellitus Hypertension Alcoholism Sister Hemochromatosis Grandfather Hepatitis Grandmother History of heart disease Grandfather Cancer Social History household members: spouse Smoking Status: Never smoker alcohol intake: current Smoking Status: Never smoker alcohol intake frequency: a few times a week Substance Use Type: does not use Exam Initial Vital Signs Initial Vital Signs: Vital Signs Temperature 98.1 F 10/22/22 11:31 Pulse Rate 78 10/22/22 11:31 Respiratory Rate 22 10/22/22 11:31 Blood Pressure 142/84 H 10/22/22 11:31 Pulse Oximetry 97 10/22/22 11:31 Oxygen Delivery Method Room Air 10/22/22 11:31 Const: Awake, alert, moderate distress, in pain Eyes: PERRL, EOMI, conjunctiva normal ENT: Atraumatic, dentition normal, mucous membranes moist Cardiac: regular rate, regular rhythm RESP: unlabored, clear bilaterally, no wheezing GI: Atraumatic, soft, nontender, nondistended, no rebound, no guarding MSK: Left-sided flank CVA tenderness Atraumatic, full range of motion, pulses equal Skin: Warm, Dry, intact, no rashes Neuro: AO x3, CN II-XII grossly intact, moves all extremities Psych: affect normal, mood normal, not suicidal, not homicidal Course Course Course Narrative: Uncomfortable but nontoxic patient presenting for left flank pain. States this is different than2 her previous kidney stone, however her last kidney stone was38 years ago. Patient has CVA tenderness on the left-hand side. We will give antiemetics, pain medications, IV fluids, and CT scan of the abdomen and pelvis. Orders Ordered: ED Orders 10/22/22 11:40 Complete Blood Count AUTO DIFF Stat Comprehensive Metabolic Panel Stat Lipase Stat 10/22/22 11:49 EKG-12 Lead Stat 10/22/22 12:22 CT abdomen pelvis w con Stat 10/22/22 13:27 Urine Microscopic Stat Ondansetron HCl (Ondansetron 4 Mg/2 Ml Inj) 4 mg IV NOW PRN PRN Reason: Nausea And Vomiting Last Admin: 10/22/22 11:46 Dose: 4 mg Documented By: LINDSAY Ondansetron HCl (Ondansetron 4 Mg Odt) 4 mg PO NOW PRN PRN Reason: Nausea And Vomiting Discontinued Medications Sodium Chloride (Normal Saline 0.9%) 1,000 mls @ 1,000 mls/hr IV BOLUS ONE Stop: 10/22/22 13:21 Last Admin: 10/22/22 12:37 Dose: 1,000 mls/hr Documented By: LINDSAY(2) Ketorolac Tromethamine (Ketorolac 30 Mg/Ml Vial) 15 mg IV NOW ONE Stop: 10/22/22 13:33 Last Admin: 10/22/22 13:36 Dose: 15 mg Morphine Sulfate (Morphine 4 Mg/Ml Inj) 4 mg IV NOW ONE Stop: 10/22/22 12:23 Last Admin: 10/22/22 12:37 Dose: 4 mg Documented By: LINDSAY(2) Reevaluation(s) Reevaluation #1: Pain control with pain medications. Laboratory work is reviewed, unremarkable. CT scan is significant for 2 mm stone with left-sided hydronephrosis. Kidney function is normal and patient's pain is well controlled. Patient was informed of her lab and imaging results. She will need to follow up with the urologist in a referral was provided. In the meantime pain medications, antiemetics, Flomax sent to pharmacy. ED return precautions discussed at bedside. Patient expressed understanding of the plan and is in agreement at this time. All questions answered at the time of discharge. Vital Signs Vital signs: Vital Signs - 8 hr 10/22/22 11:31 10/22/22 11:35 10/22/22 11:36 Temperature 98.1 F Pulse Rate 78 80 78 Respiratory Rate 22 Blood Pressure 142/84 H Pulse Oximetry 97 100 98 Oxygen Delivery Method Room Air 10/22/22 11:36 10/22/22 12:00 10/22/22 12:00 Temperature Pulse Rate 81 Respiratory Rate Blood Pressure 142/84 H 155/89 H Pulse Oximetry 95 Oxygen Delivery Method 10/22/22 12:30 10/22/22 12:31 10/22/22 12:31 Temperature Pulse Rate 74 67 Respiratory Rate Blood Pressure 137/86 Pulse Oximetry 98 98 Oxygen Delivery Method 10/22/22 13:00 10/22/22 13:24 10/22/22 13:24 Temperature Pulse Rate 72 Respiratory Rate Blood Pressure 153/106 H Pulse Oximetry 98 97 Oxygen Delivery Method 10/22/22 13:30 10/22/22 13:30 Temperature Pulse Rate 71 Respiratory Rate Blood Pressure 156/107 H Pulse Oximetry 96 Oxygen Delivery Method MDM - Abdominal Pain Lab Data 10/22/22 11:40 10/22/22 11:40 Labs: Lab Results 10/22/22 10/22/22 10/22/22 Range/Units 11:40 11:40 13:27 WBC 9.9 (4.5-11.0) X10^3/uL RBC 4.62 (4.0-5.2) X10^6/uL Hgb 13.7 (12.0-16.0) g/dL Hct 41.3 (36-46) % MCV 89.3 (80-100) fL MCH 29.7 (26-34) PG MCHC 33.2 (30-36) % RDW 13.3 (11.6-14.8) % Plt Count 281 (150-400) X10^3/uL Neut % (Auto) 44.6 L (50-75) % Lymph % (Auto) 40.2 H (25-40) % [place] % (Auto) 10.9 (3-14) % Eos % (Auto) 3.4 (2-4) % Baso % (Auto) 0.9 (0-2) % Neut # (Auto) 4400 (8223-9504) /uL Lymph # (Auto) 4000 (6099-3531) /uL [place] # (Auto) 1100 H (0-900) /uL Eos # (Auto) 300 (0-450) /uL Baso # (Auto) 100 (0-100) /uL Sodium 139 (137-145) mmol/L Potassium 3.7 (3.4-5.1) mmol/L Chloride 109 H (98-107) mmol/L Carbon Dioxide 18 L (22-32) mmol/L BUN 20 H (7-17) mg/dL Creatinine 0.82 (0.52-1.04) mg/dL Estimated GFR > 60 (>60) mL/min BUN/Creatinine Ratio 24.4 H (6-22) Glucose 134 H (80-110) mg/dL Calcium 9.6 (8.4-10.2) mg/dL Total Bilirubin 0.4 (0.2-1.3) mg/dL AST 28 (14-36) IU/L ALT 29 (<35) IU/L Alkaline Phosphatase 67 (38-126) U/L Total Protein 7.0 (6.3-8.2) g/dL Albumin 4.3 (3.5-5.0) g/dL Globulin 2.7 (1.7-4.1) g/dL Albumin/Globulin Ratio 1.6 (1.0-2.8) Lipase 119 (23-300) U/L Urine RBC 1-5/hpf (0-5/HPF) Urine WBC None seen (0-5/HPF) Ur Squamous Epith Cells 0-1 /hpf (0-5/HPF) Urine Bacteria None seen (None) Ur Culture Indicated? Cult not indicated Point of care testing: Urine Dip Bedside Urine Glucose Negative Bedside Urine Bilirubin - Negative Bedside Urine Ketone - Negative Urine Specific [place] 1.005 Bedside Urine Occult Blood ++ Bedside Urine pH 7.5 Bedside Urine Protein - Negative Bedside Urine Urobilinogen - Negative Bedside Urine Nitrite - Negative Bedside Urine Leukocytes - Negative Esterase ECG Data Interpretation: NSR 81BMP. Regular rate, regular rhythm, no STEMI, axis normal Discharge Plan Departure Patient Disposition: Home Clinical Impression: Kidney stone Instructions: DI for Kidney Stones Prescriptions: New tamsulosin [Flomax] 0.4 mg capsule 0.4 mg PO DAILY Qty: 30 0RF hydrocodone-acetaminophen 5-325 mg tablet 1 tab PO Q6H PRN (Reason: pain) Qty: 14 0RF ondansetron 4 mg tablet,disintegrating 4 mg PO Q8H PRN (Reason: nausea and vomiting) Qty: 30 0RF No Action estradiol 2 mg (7.5 mcg /24 hour) ring 1 vag ring VAG [id number] Qty: 1 3RF magnesium 200 mg Tablet 200 mg PO PRN PRN (Reason: Cramps) calcium lactate 100 mg calcium Tablet 100 mg PO DAILY aspirin 81 mg Tablet 81 mg PO DAILY cholecalciferol (vitamin D3) [Vitamin D3] 125 mcg (5,000 unit) Tablet 125 mcg PO DAILY Referrals: Kj Turner MD [Physician] - Saeed Rodriguez DO [Primary Care Provider] - Stand Alone Forms: Patient Portal/API
[2022-10-22] MEDS: KETOROLAC 30 MG/ML VIAL 15 MG IV (13:36)
[2022-10-22 13:41] LABS: Bacteria Urine None Seen; Culture Indicated Urine Cult Not Indicated; RBC Urine 1-5/HPF (0-5/HPF); Squamous Epithelial Cell Urine 0-1 /HPF (0-5/HPF); WBC Urine None Seen (0-5/HPF)
== END 2022-10-22 13:56 | disposition home or self-care (01) ==
PROVIDERS: Emergency Medicine; Emergency Provider Emergency Medicine; PCP Family Medicine
DX: N20.0 Calculus of kidney (principal)
CPT/HCPCS: 36415; 74177; 80053; 81003; 81015; 83690; 85025; 93005; 96374; 96375; 99284; J1885; J2270; J2405; Q9967

== ENCOUNTER → 2022-10-30 10:20 | Outpatient (CLI) | payer MEDICARE, SELFPAY ==
--- NOTE | 2022-10-30 | DI.MG.S_ITS ---
UNILATERAL LEFT DIGITAL DIAGNOSTIC MAMMOGRAM 3D/2D SHORT-TERM FOLLOW-UP: 10/30/2022 CLINICAL: Short term follow up for the left breast. Comparison is made to exams dated: 04/15/2022 mammogram, 03/20/2022 mammogram, and 02/04/2021 mammogram - [facility]. The left breast is heterogeneously dense, which may obscure small masses (category c / 51-75% glandular tissue). Decreased prominence of previously seen focal asymmetry in the left breast upper outer quadrant. No significant masses, calcifications, or other findings are seen in the breast. IMPRESSION: BENIGN Decreased prominence of previously seen focal asymmetry in the left breast upper outer quadrant consistent with benign etiology. No mammographic evidence of malignancy. Recommend return to annual mammogram screening, which patient will be due for in March 2023. Findings and recommendations were conveyed to the patient at the time of imaging completion. Based on Tyrer-Cuzick model (a risk assessment model), the patient's lifetime risk is 22.9% and her 10 year risk is 12.0%. If a patient has an elevated risk, a more comprehensive evaluation should be considered and/or a referral to a genetic counselor. The [employer], [employer], and NCCN Guidelines advise the consideration of Breast MRI as an adjunct to screening mammography in patients whose Lifetime risk to develop breast cancer is 20% or higher. This exam was interpreted at Station ID: [id number]. NOTE: For mammograms, a report in lay terms will be sent to the patient. Approximately 15% of breast malignancies will not be visualized mammographically. In the management of a palpable breast mass, a negative mammogram must not discourage biopsy of a clinically suspicious lesion. Electronically Signed By: Quita huggins/:10/30/2022 22:00:29 letter sent: Normal Exam ACR BI-RADS Category 2: Benign Finding(s) 3342F
== END ==
PROVIDERS: PCP Family Medicine; Referring Provider Family Medicine; Visit Provider Family Medicine
DX: N63.0 Unspecified lump in unspecified breast; R92.8 Other abnormal and inconclusive findings on diagnostic imaging of breast; N64.89 Other specified disorders of breast
CPT/HCPCS: 77065; G0279

== ENCOUNTER → 2022-11-11 11:05 | Outpatient (CLI) | payer MEDICARE, SELFPAY ==
[2022-11-11 13:32] LABS: Calcium 10.2 mg/dL (8.4-10.2); Uric Acid 5.1 mg/dL (2.5-6.2)
== END ==
PROVIDERS: PCP Family Medicine; Referring Provider Specialist; Visit Provider Specialist
DX: N20.0 Calculus of kidney (principal)
CPT/HCPCS: 36415; 82310; 84550

== ENCOUNTER → 2023-01-05 08:48 | Outpatient (CLI) | payer MEDICARE, SELFPAY ==
[2023-01-05 10:32] LABS: Calcium 9.8 mg/dL (8.4-10.2)
[2023-01-07 11:59] LABS: Calcium 8.7 mg/dL (8.7-10.3); Parathyroid Hormone, Intact 34 pg/mL (15-65)
== END ==
PROVIDERS: PCP Family Medicine; Referring Provider Specialist; Visit Provider Specialist
DX: N39.3 Stress incontinence (female) (male) (principal); N39.490 Overflow incontinence; N20.0 Calculus of kidney; M99.05 Segmental and somatic dysfunction of pelvic region; I49.9 Cardiac arrhythmia, unspecified
CPT/HCPCS: 36415; 82310; 83970

== ENCOUNTER → 2023-01-19 15:38 | Outpatient (CLI) | payer MEDICARE, SELFPAY ==
--- NOTE | 2023-01-19 16:00 | DI.CT.S_ITS ---
PROCEDURE: CT KIDNEY URETER BLADDER (KUB) INDICATIONS: Left Flank Pain, without Left Ureter stone TECHNIQUE: Axial sections were acquired from the lung bases to the pubic symphysis. Coronal and sagittal reformats were performed. For radiation dose reduction, the following was used: automated exposure control, adjustment of mA and/or kV according to patient size. COMPARISON: [facility], CT, CT ABDOMEN PELVIS W CON, 10/22/2022, 13:09. FINDINGS: Image quality: Excellent. Lung bases: No suspicious pulmonary nodule or consolidation. No basilar effusion. Heart: No significant findings. URINARY: Right Kidney: No stones or hydronephrosis. Right Ureter: No hydroureter. Left Kidney: No hydronephrosis. Previously seen left proximal ureteral stone measuring 2 mm is no longer seen. Nonobstructive nephrolith measuring 3 mm in the left lower pole (2/34), stable. Left Ureter: No hydroureter. Bladder: Normal wall thickness. No stones. ABDOMEN: Liver: No contour-deforming solid mass. Subcentimeter hypodensity in the right hepatic lobe is too small to characterize (2/20). Gallbladder: No radiopaque gallstones or wall thickening. Biliary ducts: No biliary dilation. Pancreas: No ductal dilation. Spleen: Size is within normal limits. Adrenal Glands: No adrenal nodules. Stomach and Bowel: Small hiatal hernia. Stomach is decompressed, limiting evaluation, but appears grossly normal. Small and large bowel is normal in caliber, without obstruction. Normal appendix. No pneumatosis, pneumoperitoneum or portal venous gas. Peritoneum: No abnormal intraperitoneal fluid. Ventral Wall: Tiny fat containing umbilical hernia. Abdominal Nodes: No enlarged retroperitoneal or mesenteric lymph nodes. Vessels: Aorta and inferior vena cava are normal in size. PELVIS: Pelvic Organs: Hysterectomy. Pessary. Bladder is decompressed. Limiting evaluation. Pelvic Nodes: Unremarkable. Miscellaneous: No inguinal hernias are seen. Bones: No acute fractures. No aggressive appearing lytic or blastic osseous lesions. Mild multilevel degenerative changes of the spine. IMPRESSION: 1. No hydronephrosis bilaterally. Previously seen left proximal ureteral stone measuring 2 mm is no longer seen. 2. Nonobstructive nephrolith in the left lower pole measuring 3 mm, stable. 3. Stable subcentimeter hypodensity in the liver which is too small to characterize. Dictated by: Yamil Miranda M.D. on 01/19/2023 at 18:14 Approved by: Yamil Miranda M.D. on 01/19/2023 at 18:22
== END ==
PROVIDERS: PCP Family Medicine; Referring Provider Specialist; Visit Provider Specialist
DX: Z09 Encounter for follow-up examination after completed treatment for conditions other than malignant neoplasm (principal); Z87.442 Personal history of urinary calculi; K44.9 Diaphragmatic hernia without obstruction or gangrene
CPT/HCPCS: 74176

== ENCOUNTER → 2023-04-27 08:25 | Outpatient (CLI) | payer MEDICARE, SELFPAY ==
[2023-04-27 11:00] LABS: Cholesterol 207 mg/dL (140-199); HDL Cholesterol 53 mg/dL (40-60); LDL Cholesterol Calculated 121 mg/dL (<100); Triglycerides 163 mg/dL (35-150)
== END ==
LOC: LAB 08:26
PROVIDERS: PCP Family Medicine; Referring Provider Family Medicine; Visit Provider Family Medicine
DX: E78.5 Hyperlipidemia, unspecified (principal)
CPT/HCPCS: 36415; 80061

== ENCOUNTER → 2023-09-07 13:05 | Outpatient (CLI) | payer MEDICARE, SELFPAY ==
[2023-09-07 13:38] LABS: Hematocrit 40.3 % (36-46); Hemoglobin 13.8 g/dL (12.0-16.0); Mean Corpuscular HGB Conc 34.1 % (30-36); Mean Corpuscular Hemoglobin 30.8 PG (26-34); Mean Corpuscular Volume 90.2 fL (80-100); Platelet Count 258 X10^3/uL (150-400); Red Blood Cell Count 4.47 X10^6/uL (4.0-5.2); Red Cell Distribution Width 13.4 % (11.6-14.8); White Blood Cell Count 8.3 X10^3/uL (4.5-11.0)
[2023-09-07 13:56] LABS: Alanine Aminotransferase 32 IU/L (<35); Albumin 4.2 g/dL (3.5-5.0); Albumin Globulin Ratio 1.6 (1.0-2.8); Alkaline Phosphatase 78 U/L (38-126); Aspartate Aminotransferase 27 IU/L (14-36); BUN Creatinine Ratio 29.9 (6-22); Bilirubin Total 0.6 mg/dL (0.2-1.3); Blood Urea Nitrogen 20 mg/dL (7-17); C-Reactive Protein Quant < 0.5 mg/dL (<1.0); Calcium 9.3 mg/dL (8.4-10.2); Carbon Dioxide 20 mmol/L (22-32); Chloride 109 mmol/L (98-107); Estimated Glomerular Filt Rate > 60 mL/min (>60); Globulin 2.6 g/dL (1.7-4.1); Glucose 100 mg/dL (80-110); HEMOLYSIS 15 (0-50); Potassium 4.3 mmol/L (3.4-5.1); Sodium 137 mmol/L (137-145); Total Protein 6.8 g/dL (6.3-8.2)
[2023-09-07 15:12] LABS: Erythrocyte Sedimentation Rate 9 MM/HR (0-20)
== END ==
PROVIDERS: PCP Family Medicine; Referring Provider Specialist/Technologist Athletic Trainer; Visit Provider Specialist/Technologist Athletic Trainer
DX: D84.9 Immunodeficiency, unspecified (principal); L40.50 Arthropathic psoriasis, unspecified; Z51.81 Encounter for therapeutic drug level monitoring
CPT/HCPCS: 36415; 80053; 85027; 85651; 86140

== ENCOUNTER → 2023-10-12 15:24 | Outpatient (CLI) | payer MEDICARE, SELFPAY ==
[2023-10-12 18:25] LABS: Alanine Aminotransferase 37 IU/L (<35); Albumin 4.1 g/dL (3.5-5.0); Albumin Globulin Ratio 1.4 (1.0-2.8); Alkaline Phosphatase 62 U/L (38-126); Aspartate Aminotransferase 30 IU/L (14-36); Bilirubin Total 0.6 mg/dL (0.2-1.3); Blood Urea Nitrogen 22 mg/dL (7-17); Calcium 9.4 mg/dL (8.4-10.2); Carbon Dioxide 26 mmol/L (22-32); Chloride 104 mmol/L (98-107); Estimated Glomerular Filt Rate > 60 mL/min (>60); Glucose 81 mg/dL (80-110); HEMOLYSIS 39 (0-50); Potassium 4.5 mmol/L (3.4-5.1); Sodium 136 mmol/L (137-145); Total Protein 7.1 g/dL (6.3-8.2)
== END ==
LOC: LAB 15:25
PROVIDERS: PCP Family Medicine; Referring Provider Specialist/Technologist Athletic Trainer; Visit Provider Specialist/Technologist Athletic Trainer
DX: L40.50 Arthropathic psoriasis, unspecified (principal); M24 Other specific joint derangements
CPT/HCPCS: 36415; 80053

== ENCOUNTER → 2024-02-16 09:42 | Outpatient (CLI) | payer MEDICARE, SELFPAY ==
[2024-02-16 11:20] LABS: Cholesterol 200 mg/dL (140-199); HDL Cholesterol 51 mg/dL (40-60); LDL Cholesterol Calculated 122 mg/dL (<100); Triglycerides 134 mg/dL (35-150)
== END ==
PROVIDERS: PCP Family Medicine; Referring Provider Family Medicine; Visit Provider Family Medicine
DX: E78.5 Hyperlipidemia, unspecified (principal)
CPT/HCPCS: 36415; 80061

== ENCOUNTER → 2024-02-29 10:26 | Outpatient (CLI) | payer MEDICARE, SELFPAY ==
[2024-02-29 11:15] LABS: Hematocrit 40.6 % (36-46); Hemoglobin 13.4 g/dL (12.0-16.0); Mean Corpuscular Volume 90.9 fL (80-100); Platelet Count 249 X10^3/uL (150-400); Red Blood Cell Count 4.47 X10^6/uL (4.0-5.2); Red Cell Distribution Width 13.8 % (11.6-14.8); White Blood Cell Count 6.4 X10^3/uL (4.5-11.0)
[2024-02-29 11:46] LABS: C-Reactive Protein Quant < 0.5 mg/dL (<1.0)
[2024-02-29 12:20] LABS: Erythrocyte Sedimentation Rate 7 MM/HR (0-20)
== END ==
PROVIDERS: PCP Family Medicine; Referring Provider Specialist/Technologist Athletic Trainer; Visit Provider Specialist/Technologist Athletic Trainer
DX: L40.50 Arthropathic psoriasis, unspecified (principal); M24 Other specific joint derangements
CPT/HCPCS: 36415; 85027; 85651; 86140

== ENCOUNTER → 2024-05-21 | Outpatient (CLI) | payer MEDICARE, SELFPAY ==
--- NOTE | 2024-05-21 09:35 | DI.MG.S_ITS ---
MM screening mammo BI: 05/21/2024. BI-RADS: 1 CLINICAL: 68-year old female for bilateral screening mammogram. Tyrer-Cuzick lifetime risk of 18.1%. Current reported family history of breast cancer: mother. PRIOR EXAMS 10/30/2022, 04/15/2022, 03/20/2022, 02/04/2021, 02/02/2020. MAMMOGRAPHY TECHNIQUE: 2D and 3D (tomosynthesis) digital mammographic views obtained, with additional images as needed for full coverage. Current study was also evaluated with a Computer Aided Detection (CAD) system. DENSITY C. The breasts are heterogeneously dense, which may obscure small masses. MAMMOGRAPHY FINDINGS Bilateral: No suspicious mass, asymmetry, microcalcification, or other abnormality seen. No significant change from comparison. IMPRESSION: * No evidence of malignancy. RECOMMENDATIONS Bilateral * Annual screening mammography. OVERALL ASSESSMENT CATEGORY BI-RADS-1: Negative. The [employer] recommends annual screening mammography beginning at age 40 for women with average risk of breast cancer. ELECTRONICALLY SIGNED: Breanne Lynn M.D. on 05/23/2024 at 01:10:58 PM PT Interpreting Station ID: [id number]
== END ==
PROVIDERS: PCP Family Medicine; Referring Provider Obstetrics & Gynecology; Visit Provider Obstetrics & Gynecology
DX: Z12.31 Encounter for screening mammogram for malignant neoplasm of breast (principal); Z80.3 Family history of malignant neoplasm of breast; R92.333 Mammographic heterogeneous density, bilateral breasts
CPT/HCPCS: 77063; 77067

== ENCOUNTER → 2024-05-30 08:13 | Outpatient (CLI) | payer MEDICARE, SELFPAY ==
[2024-05-30 09:03] LABS: Add Manual Diff / Slide Review NO; Basophils Absolute Auto 0 /uL (0-100); Basophils Percent Auto 0.6 % (0-2); Eosinophils Absolute Auto 100 /uL (0-450); Eosinophils Percent Auto 1.9 % (2-4); Hematocrit 41.5 % (36-46); Hemoglobin 13.9 g/dL (12.0-16.0); Lymphocytes Absolute Auto 2600 /uL (1100-4500); Lymphocytes Percent Auto 47.1 % (25-40); Mean Corpuscular HGB Conc 33.5 % (30-36); Mean Corpuscular Hemoglobin 30.3 PG (26-34); Mean Corpuscular Volume 90.5 fL (80-100); Monocytes Absolute Auto 500 /uL (0-900); Monocytes Percent Auto 8.4 % (3-14); Neutrophils Absolute Auto 2300 /uL (1500-7000); Platelet Count 220 X10^3/uL (150-400); Red Blood Cell Count 4.58 X10^6/uL (4.0-5.2); Red Cell Distribution Width 12.9 % (11.6-14.8); White Blood Cell Count 5.4 X10^3/uL (4.5-11.0)
[2024-05-30 09:28] LABS: Alanine Aminotransferase 31 IU/L (<35); Alkaline Phosphatase 63 U/L (38-126); Aspartate Aminotransferase 27 IU/L (14-36); C-Reactive Protein Quant < 0.5 mg/dL (<1.0); Erythrocyte Sedimentation Rate 10 MM/HR (0-20); Estimated Glomerular Filt Rate > 60 mL/min (>60)
== END ==
PROVIDERS: PCP Family Medicine; Referring Provider Specialist/Technologist Athletic Trainer; Visit Provider Specialist/Technologist Athletic Trainer
DX: L40.50 Arthropathic psoriasis, unspecified (principal); D84.9 Immunodeficiency, unspecified
CPT/HCPCS: 36415; 82565; 84075; 84450; 84460; 85025; 85651; 86140